=== PATIENT | female | born 1930 | race Caucasian/White ===

== ENCOUNTER → 2016-10-21 | Outpatient (CLI) | payer OTHER ==
[~2016-10-21] MED LIST: ACET-1256 PO; ATEN-173; ATEN25TA PO; CALC-388 PO; CHOL1000 PO; CHOL2000 PO; CLC100; FRRS300; IBAN150T PO; LOVA40TA4 PO; MESA1TAB4 PO; MESALAMINE; OMEG10007 PO; PRMVC; RXC5 PO; ULT50X PO
--- NOTE | 2016-10-21 16:24 | MAMMOGRAPHY REPORT ---
BILATERAL DIGITAL SCREENING MAMMOGRAM WITH CAD: 10/21/2016 CLINICAL HISTORY: Routine screening. Patient has no complaints. TECHNIQUE: Bilateral CC and MLO views were obtained. Current study was also evaluated with a Comput er Aided Detection (CAD) system. COMPARISON: Comparison is made to exams dated: 10/09/2015 mammogram, 12/26/2011 mammogram, 10/06/2014 mammogram, 12/19/2010 mammogram, 12/18/2009 mammogram - [facility], and 12/15/2008. BREAST COMPOSITION: The tissue of both breasts is almost entirely fatty. FINDINGS: There are minimal vascular calcifications in both breasts. No suspicious mass, architec tural distortion or cluster of microcalcifications is seen. IMPRESSION: ACR BI-RADS CATEGORY 2: BENIGN There is no mammographic evidence of malignancy. A 1 year screening mammogram is recommended. The p atient will receive written notification of the results. Approximately 10% of breast cancers are not detected with mammography. A negative mammographic repor t should not delay biopsy if a clinically suggestive mass is present. Hanna So M.D. ay/:10/21/2016 13:26:43 Ambulance Officer: Lakisha MCDONALD(Erick)(M), [facility] letter sent: Normal 1/2 BI-RADS Code: ACR BI-RADS Category 2: Benign
== END | disposition home or self-care (01) ==
LOC: C.MAMM 09:42
PROVIDERS: ATTEND Family Medicine
DX: Z12.31 Encounter for screening mammogram for malignant neoplasm of breast (principal)

== ENCOUNTER 2017-04-17 15:06 | Observation (INO) | payer OTHER ==
[~2017-04-17] VITALS: Ht 149.9 cm; Wt 87.0 kg
[~2017-04-17 15:06] MED LIST changes: -ACET-1256 PO; -ATEN25TA PO; -CALC-388 PO; -CHOL1000 PO; -CHOL2000 PO; -IBAN150T PO; -LOVA40TA4 PO; -MESA1TAB4 PO; -OMEG10007 PO; -RXC5 PO; -ULT50X PO
[2017-04-17] MEDS ORDERED: ACET-1256 PO (15:50)
[2017-04-17] MEDS ORDERED: MESA800T6 PO (15:50)
[2017-04-17] MEDS ORDERED: IBAN150T PO (15:50)
[2017-04-17] MEDS ORDERED: ATEN25TA PO (15:50)
[2017-04-17] MEDS ORDERED: CHOL1000 PO (15:50)
[2017-04-17] MEDS ORDERED: LOVA40TA4 PO (15:50)
[2017-04-17] MEDS ORDERED: OMEG10007 PO (15:50)
--- NOTE | 2017-04-17 16:20 | EMERGENCY ROOM VISIT NOTE ---
History Report prepared by Jennifer: Soham York Under the Supervision of: Dr. Luis Roca M.D. First contact with patient: 15:39 Chief Complaint: BACK PAIN Stated Complaint: back pain History of Present Illness The patient is an 86 year old female who presents to the Emergency Room with complaints of worsening middle back pain beginning this morning. She currently rates her pain a 2/10. The patient states for the last three days, she has been raking leaves in the yard. She reports she was bending and stretching in all sorts of ways. The patient notes she woke up this morning with her discomfort. She states she thought it was going to go away, but it did not. The patient reports she has a history of a compression fracture in her right leg. She denies recent infection, changes to medication, and trauma to her back. The patient notes she takes blood pressure medication, but she denies any other chronic medication. She states she has a history of a cholecystectomy and a hysterectomy. Pt denies LOC, headache, fevers, chills, diaphoresis, visual changes, neck pain, chest pain, breathing difficulties, nausea, vomiting, abdominal pain, melena, hematochezia, urinary symptoms, numbness, weakness, lymphadenopathy, rash, or other complaints. The nursing staff states the patient's pain was there this morning, and she has been doing a lot of yard work lately. They report the patient placed in a stair chair by EMS and then transferred to the [facility]. Nursing staff notes the patient 's pain went from a 2/10 to a 10/10 and blood pressure and O2Sat dropped to the low 80s. They state the patient was given 50 Fentanyl, 4 Zofran, and fluid. Nursing staff reports the patient's pain dropped from a 10/10 back down to a 2/ 10, and her stats returned to normal. Source of History: patient Onset: this morning Position: back Symptom Intensity: 2/10 Timing: worsening Modifying Factors (Relieving): other (Fentanyl and Zofran) Review of Systems See HPI for pertinent positives and negatives. A total of ten systems were reviewed and were otherwise negative. Past Medical & Surgical Medical Problems: (1) Aortic insufficiency (2) History of ulcerative colitis (3) Hypertension (4) Osteoporosis Surgical Problems: (1) S/P cholecystectomy (2) S/P hysterectomy Family History Patient reports no known family medical history. Social History Smoking Status: Never Smoker Marital Status: Occupation Status: retired Current/Historical Medications Scheduled Atenolol (Tenormin), 25 MG PO DAILY Calcium Carbonate-Vitamin D (Calcium + D3 600-200 mg-Unit), 1 TAB PO BID Cholecalciferol (Vitamin D3), 1 CAP PO DAILY Fish Oil (Ryan-3), 1 CAP PO DAILY Ibandronate Sodium (Boniva), 150 MG PO MONTHLY Lovastatin (Mevacor), 40 MG PO DAILY Mesalamine (Asacol Hd), 2 TAB PO BID Scheduled PRN Acetaminophen (Tylenol), 1-2 TAB PO Q8 PRN for Mild Pain Allergies Coded Allergies: No Known Allergies (Verified , 08/22/06) Physical Exam Vital Signs Date Time Temp Pulse Resp B/P (MAP) Pulse Ox O2 Delivery O2 Flow Rate FiO2 04/17/17 18:22 77 20 133/66 94 Nasal Cannula 2.0 04/17/17 18:10 76 04/17/17 16:24 70 20 114/61 92 Nasal Cannula 2.0 04/17/17 15:23 95 Nasal Cannula 2.0 04/17/17 15:15 36.7 65 20 123/53 91 Room Air Physical Exam GENERAL: Awake, alert, uncomfortable-appearing, in no distress HENT: Normocephalic, atraumatic. Oropharynx unremarkable. EYES: Normal conjunctiva. Sclera non-icteric. NECK: Supple. No nuchal rigidity. FROM. No JVD. RESPIRATORY: Clear to auscultation. CARDIAC: Regular rate, normal rhythm. Extremities warm and well perfused. Pulses equal. ABDOMEN: Soft, non-distended. No tenderness to palpation. No rebound or guarding. No masses. RECTAL: Deferred. MUSCULOSKELETAL: Chest examination reveals no tenderness. The back is symmetrical on inspection without obvious abnormality. There is bilateral CVA tenderness to palpation. No joint edema. LOWER EXTREMITIES: Calves are equal size bilaterally and non-tender. No edema. No discoloration. NEURO: Normal sensorium. No sensory or motor deficits noted. No saddle anesthesia. SKIN: No rash or jaundice noted. Medical Decision & Procedures ER Provider Diagnostic Interpretation: LUMBAR SPINE CT CT DOSE: 1745.81 mGy.cm HISTORY: Back pain TECHNIQUE: Multiaxial CT images of the lumbar spine were performed and reformatted in the sagittal and coronal plane without the use of contrast. A dose lowering technique was utilized adhering to the principles of ALARA. COMPARISON: None. FINDINGS: No fractures within the lumbar spine. Moderate to space narrowing at L2-L3. Mild disc space narrowing at L4-L5 and L1-L2. Severe disc space narrowing at L5-S1. There is bilateral L5 spondylolysis with associated 9 mm of anterolisthesis. Results in moderate neural foraminal narrowing at L5-S1. Mild dextroscoliosis. IMPRESSION: 1. No fractures within the lumbar spine. 2. Degenerative changes as described above. 3. 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 Electronically signed by: Yong Ardon M.D. 04/17/2017 4:53 PM Dictated Date/Time: 04/17/2017 4:49 PM Laboratory Results 04/17/17 16:54 Red Blood Count 3.32, Mean Corpuscular Volume 100.3, Mean Corpuscular Hemoglobin 34.6, Mean Corpuscular Hemoglobin Concent 34.5, Mean Platelet Volume 9.2, Neutrophils (%) (Auto) 79.2, Lymphocytes (%) (Auto) 14.5, Monocytes (%) ( Auto) 6.3, Eosinophils (%) (Auto) 0.0, Basophils (%) (Auto) 0.0, Neutrophils # ( Auto) 5.67, Lymphocytes # (Auto) 1.04, Monocytes # (Auto) 0.45, Eosinophils # ( Auto) 0.00, Basophils # (Auto) 0.00 04/17/17 16:54 Test 04/17/17 16:54 White Blood Count 7.16 K/uL (4.8-10.8) Red Blood Count 3.32 M/uL (4.2-5.4) Hemoglobin 11.5 g/dL (12.0-16.0) Hematocrit 33.3 % (37-47) Mean Corpuscular Volume 100.3 fL (80-100) Mean Corpuscular Hemoglobin 34.6 pg (25-34) Mean Corpuscular Hemoglobin Concent 34.5 g/dl (32-36) Platelet Count 147 K/uL (130-400) Mean Platelet Volume 9.2 fL (7.4-10.4) Neutrophils (%) (Auto) 79.2 % Lymphocytes (%) (Auto) 14.5 % Monocytes (%) (Auto) 6.3 % Eosinophils (%) (Auto) 0.0 % Basophils (%) (Auto) 0.0 % Neutrophils # (Auto) 5.67 K/uL (1.4-6.5) Lymphocytes # (Auto) 1.04 K/uL (1.2-3.4) Monocytes # (Auto) 0.45 K/uL (0.11-0.59) Eosinophils # (Auto) 0.00 K/uL (0-0.5) Basophils # (Auto) 0.00 K/uL (0-0.2) RDW Standard Deviation 49.7 fL (36.4-46.3) RDW Coefficient of Variation 13.8 % (11.5-14.5) Immature Granulocyte % (Auto) 0.0 % Immature Granulocyte # (Auto) 0.00 K/uL (0.00-0.02) Erythrocyte Sedimentation Rate 18 mm/hr (0-21) Prothrombin Time 10.5 SECONDS (9.0-12.0) Prothromb Time International Ratio 1.0 (0.9-1.1) Activated Partial Thromboplast Time 28.3 SECONDS (21.0-31.0) Partial Thromboplastin Ratio 1.1 Anion Gap 5.0 mmol/L (3-11) Est Creatinine Clear Calc Drug Dose 48.7 ml/min Estimated GFR () 76.8 Estimated GFR (Non- 66.2 BUN/Creatinine Ratio 25.9 (10-20) Calcium Level 9.2 mg/dl (8.5-10.1) C-Reactive Protein 3.34 mg/dl (0-0.29) Laboratory results reviewed by me Medications Administered Medications (Trade) Dose Ordered Sig/Fabrice Route Start Time Stop Time Status Last Admin Dose Admin Morphine Sulfate (MoRPHine SULFATE INJ) 2 mg STK-MED ONCE .ROUTE 04/17/17 17:16 04/17/17 17:17 DC 04/17/17 17:18 2 MG ED Course 1543: The patient was evaluated in room B06. A complete history and physical exam was performed. 1708: I reevaluated the patient. I showed and discussed her CT results with her. 1716: Ordered Morphine Sulfate 2mg IV 1738: I reevaluated the patient. She received her shot. The patient is now able to sit up. She is going to try an ambulatory trial. 1823: Upon reexamination, the patient failed her ambulatory trial. I discussed the test results and treatment plan with her. The patient will be evaluated for further management. 1831: I discussed the patient's case with Yanni Headley. The patient will be evaluated for further management and care. Medical Decision Triage Nursing notes reviewed. The patient's presentation and history were concerning for back pain. Etiologies such as lumbago, sciatica, cauda equina, epidural abscess, osteomyelitis, fracture, aortic disease, metastatic disease, infection, renal colic, gastrointestinal, as well as others were entertained. The patient was evaluated. She was uncomfortable with movement but relatively comfortable laying still. She had no neurologic findings on examination. She denied any significant trauma. She felt much better after receiving the fentanyl although did have a brief episode of hypotension and hypoxia which easily was corrected. Blood work was obtained. Urinalysis ordered. The patient declined additional analgesia. The patient had a CT scan as above. She has significant degenerative changes. The patient then requested analgesia after CT. She was given morphine. She felt better with resting. The patient was ambulated and did not do well at all. She had increasing pain. She is very uncomfortable. Given these issues she will need further evaluation and management in the hospital. The patient and family were in agreement. Consultation was made to the hospitalist service. The patient was evaluated for further management. Medication Reconcilliation Current Medication List: was personally reviewed by me Blood Pressure Screening Patient's blood pressure: Normal blood pressure Blood pressure disposition: Did not require urgent referral Consults Time Called: 1823 Consulting Physician: Yanni Headley Returned Call: 1831 I discussed the patient's case with Yanni Headley. The patient will be evaluated for further management and care. 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 I confirm that the note above accurately reflects all work, treatment, procedures, and medical decision making performed by me. Departure Information Dispostion Being Evaluated By Hospitalist Referrals Raquel Arriola M.D. (MEDICAL) (PCP) Patient Instructions My [facility] Problem Qualifiers
--- NOTE | 2017-04-17 16:54 | DIAGNOSTIC IMAGING REPORT ---
LUMBAR SPINE CT CT DOSE: 1745.81 mGy.cm HISTORY: Back pain TECHNIQUE: Multiaxial CT images of the lumbar spine were performed and reformatted in the sagittal and coronal plane without the use of contrast. A dose lowering technique was utilized adhering to the principles of ALARA. COMPARISON: None. FINDINGS: No fractures within the lumbar spine. Moderate to space narrowing at L2-L3. Mild disc space narrowing at L4-L5 and L1-L2. Severe disc space narrowing at L5-S1. There is bilateral L5 spondylolysis with associated 9 mm of anterolisthesis. Results in moderate neural foraminal narrowing at L5-S1. Mild dextroscoliosis. IMPRESSION: 1. No fractures within the lumbar spine. 2. Degenerative changes as described above. 3. 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 Electronically signed by: Yong Ardon M.D. 04/17/2017 4:53 PM Dictated Date/Time: 04/17/2017 4:49 PM
[2017-04-17] MEDS ORDERED: MoRPHine SULFATE 4 MG/ML 1 ML CARP\\VIAL IV STA (17:03)
[2017-04-17 17:11] LABS: COMPLETE YES; HEMATOCRIT 33.3 % (37-47); LYMPH % 14.5 %; LYMPH ABS # 1.04 K/uL (1.2-3.4); MEAN CELL VOLUME 100.3 fL (80-100); MEAN CORPUSCULAR HEMOGLOBIN 34.6 pg (25-34); MEAN CORPUSCULAR HGB CONC 34.5 g/dl (32-36); MEAN PLATELET VOLUME 9.2 fL (7.4-10.4); MONO % 6.3 %; NEUT % 79.2 %; PLATELET COUNT 147 K/uL (130-400); RED BLOOD COUNT 3.32 M/uL (4.2-5.4); WHITE BLOOD COUNT 7.16 K/uL (4.8-10.8)
[2017-04-17] MEDS ORDERED: MoRPHine SULFATE 2 MG/ML CARP ONE (17:16)
[2017-04-17 17:22] LABS: PARTIAL THROMBOPLASTIN RATIO 1.1; PROTHROMBIN TIME (PATIENT) 10.5 SECONDS (9.0-12.0)
[2017-04-17 18:07] LABS: BUN/CREATININE RATIO 25.9 (10-20); C-REACTIVE PROTEIN 3.34 mg/dl (0-0.29); CALCIUM 9.2 mg/dl (8.5-10.1); CREATININE 0.81 mg/dl (0.60-1.20); POTASSIUM 3.9 mmol/L (3.5-5.1)
[2017-04-17] MEDS ORDERED: ACETAMINOPHEN 325 MG TAB PO PRN (19:00)
--- NOTE | 2017-04-17 19:06 | History and Physical ---
History & Physical Date & Time of Service: Apr 17, 2017 at 19:05 Chief Complaint: Back Pain Primary Care Physician: Raquel Arriola M.D. (MEDICAL) History of Present Illness Source: patient, clinic records, hospital records This is an 86yo female with a PMH of HTN, osteoporosis and other medical problems listed below who presents with worsening back pain over the past few days. For the previous 3 days, patient has been raking her yard with some twisting and bending down. States that although she is able to ambulate around her home without a problem, this is more exertional activity than her usual daily living. She started to experience a dull middle-lower back pain that worsened as the days progressed. This morning, patient woke up feeling sore all over and fatigued. When she got out of bed and moved about her home, her back pain became sharper and more severe. Pain does not radiate down legs and is not associated with any numbness or tingling of lower extremities. No saddle anesthesia, bowel or bladder incontinence. States that she has felt back pain similar to this earlier in her life during periods of increased exertion. Has history of a compression fracture in her R leg. Lives in a mobile home with her son with a few steps to climb at the entrance. Per chart review and discussion with nursing staff, patient was given 50 of Fentanyl for pain control by EMS en route to the hospital. Her blood pressure and O2 saturation subsequently dropped into the 80s. Patient was given IVF and vitals returned to normal range. In the ER, patient was trialed on 2mg of morphine for pain control but O2 saturations decreased to mid 80s. Patient is now on 3L NC O2 and saturation is 90%. Denies any fever, chills, headache, CP, dyspnea, SOB, abd pain, nausea, vomiting , dysuria, diarrhea, constipation, LE numbness/tingling or swelling. Denies any focal neurological deficits. Past Medical/Surgical History Medical Problems: (1) Aortic insufficiency Status: Chronic (2) History of ulcerative colitis Status: Chronic (3) Hypertension Status: Chronic (4) Osteoporosis Status: Chronic Surgical Problems: (1) S/P cholecystectomy Status: Resolved (2) S/P hysterectomy Status: Resolved Family History Family history was reviewed; no changes noted. Social History Smoking Status: Former Smoker (Quit in 1974) Alcohol Use: none Marital Status: Housing status: lives with family Occupational Status: retired Immunizations History of Influenza Vaccine: Unknown Influenza Vaccine Date: May 25, 2006 History of Tetanus Vaccine?: Unknown History of Pneumococcal: Unknown Pneumococcal Date: Jan 22, 2006 History of Hepatitis B Vaccine: Unknown Multi-Drug Resistant Organisms History of MDRO: No Allergies Coded Allergies: No Known Allergies (Verified , 08/22/06) Home Medications Scheduled Atenolol (Tenormin), 25 MG PO DAILY Calcium Carbonate-Vitamin D (Calcium + D3 600-200 mg-Unit), 1 TAB PO BID Cholecalciferol (Vitamin D3), 1 CAP PO DAILY Fish Oil ([place]-3), 1 CAP PO DAILY Ibandronate Sodium (Boniva), 150 MG PO MONTHLY Lovastatin (Mevacor), 40 MG PO DAILY Mesalamine (Asacol Hd), 2 TAB PO BID Scheduled PRN Acetaminophen (Tylenol), 1-2 TAB PO Q8 PRN for Mild Pain Review of Systems Constitutional- no fever; no weight loss Eyes- no acute visual changes ENT- no sinus drainage; no pharyngitis Pulmonary- no cough, no wheezing, no shortness of breath Cardiac- See HPI. no palpitations, no orthopnea, no dependent edema GI- See HPI - no dysuria, no hematuria Musculoskeletal- See HPI Derm- no rashes, no new skin lesions, no changing skin lesions Hematologic- no unusual bruising, no unusual bleeding Lymphatics- no adenopathy Endocrine- no polyuria or polydipsia; no heat or cold intolerance Neuro- See HPI Psych- no anxiety, no depression Physical Exam Vital Signs Date Time Temp Pulse Resp B/P (MAP) Pulse Ox O2 Delivery O2 Flow Rate FiO2 04/17/17 18:22 77 20 133/66 94 Nasal Cannula 2.0 04/17/17 18:10 76 04/17/17 16:24 70 20 114/61 92 Nasal Cannula 2.0 04/17/17 15:23 95 Nasal Cannula 2.0 04/17/17 15:15 36.7 65 20 123/53 91 Room Air General Appearance: + mild distress (Resting comfortably during interview but grimaces in pain with movement.) Head: normocephalic, atraumatic Eyes: normal inspection, sclerae normal ENT: hearing grossly normal Neck: supple, no adenopathy, no JVD, trachea midline Respiratory/Chest: chest non-tender, lungs clear, normal breath sounds, no respiratory distress Cardiovascular: regular rate, rhythm, normal peripheral pulses Abdomen/GI: normal bowel sounds, non tender, soft, no organomegaly Back: normal inspection, + pertinent finding (Tenderness to palpation of lumbar spine and paraspinal muscles. ROM decreased 2/2 pain. ) Extremities/Musculoskelatal: normal inspection, no calf tenderness, no pedal edema Neurologic/Psych: no motor/sensory deficits, alert, normal mood/affect, oriented x 3 Skin: normal color, warm/dry, no rash Diagnostics Laboratory Results Results Past 24 Hours Test 04/17/17 16:54 Range/Units White Blood Count 7.16 4.8-10.8 K/uL Red Blood Count 3.32 4.2-5.4 M/uL Hemoglobin 11.5 12.0-16.0 g/dL Hematocrit 33.3 37-47 % Mean Corpuscular Volume 100.3 80-100 fL Mean Corpuscular Hemoglobin 34.6 25-34 pg Mean Corpuscular Hemoglobin Concent 34.5 32-36 g/dl Platelet Count 147 130-400 K/uL Mean Platelet Volume 9.2 7.4-10.4 fL Neutrophils (%) (Auto) 79.2 % Lymphocytes (%) (Auto) 14.5 % Monocytes (%) (Auto) 6.3 % Eosinophils (%) (Auto) 0.0 % Basophils (%) (Auto) 0.0 % Neutrophils # (Auto) 5.67 1.4-6.5 K/uL Lymphocytes # (Auto) 1.04 1.2-3.4 K/uL Monocytes # (Auto) 0.45 0.11-0.59 K/uL Eosinophils # (Auto) 0.00 0-0.5 K/uL Basophils # (Auto) 0.00 0-0.2 K/uL RDW Standard Deviation 49.7 36.4-46.3 fL RDW Coefficient of Variation 13.8 11.5-14.5 % Immature Granulocyte % (Auto) 0.0 % Immature Granulocyte # (Auto) 0.00 0.00-0.02 K/uL Erythrocyte Sedimentation Rate 18 0-21 mm/hr Prothrombin Time 10.5 9.0-12.0 SECONDS Prothromb Time International Ratio 1.0 0.9-1.1 Activated Partial Thromboplast Time 28.3 21.0-31.0 SECONDS Partial Thromboplastin Ratio 1.1 Sodium Level 139 136-145 mmol/L Potassium Level 3.9 3.5-5.1 mmol/L Chloride Level 106 98-107 mmol/L Carbon Dioxide Level 27 21-32 mmol/L Anion Gap 5.0 3-11 mmol/L Blood Urea Nitrogen 21 7-18 mg/dl Creatinine 0.81 0.60-1.20 mg/dl Est Creatinine Clear Calc Drug Dose 48.7 ml/min Estimated GFR () 76.8 Estimated GFR (Non- 66.2 BUN/Creatinine Ratio 25.9 10-20 Random Glucose 106 70-99 mg/dl Calcium Level 9.2 8.5-10.1 mg/dl C-Reactive Protein 3.34 0-0.29 mg/dl Diagnostic Radiology CT Lumbar spine: IMPRESSION: 1. No fractures within the lumbar spine. 2. Degenerative changes as described above. 3. 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 Impression Assessment and Plan This is an 86yo female with a PMH of HTN, osteoporosis and other medical problems listed below who presents with worsening back pain over the past few days. 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 appreciated -May also have a muscular component 2/2 bending and twisting while raking -Pain control: scheduled tylenol, heating pad, tramadol and oxycodone PRN -Avoid opioids due decreased respiratory drive already observed in response to fentanyl, morphine -Incentive spirometry, NC O2 per protocol -PT/OT evals ordered. Ambulate on floor with assistance as tolerated -Fall precautions HTN: -Normotensive -Continue home dose atenolol with hold precautions History of ulcerative colitis: -Per chart review, patient in remission -Denies any symptoms currently -Continue home dose Asacol Osteoporosis: -Fall precautions -Conditioning with PT/OT -Continue ibandronate, Vit D, calcium DVT Ppx: Lovenox Code status: FULL PCP: [place] Dispo: health services information specialist to help with discharge due to patient age and potential need for rehab Level of Care Med/Surg Resuscitation Status FULL RESUSCITATION VTE Prophylaxis VTE Risk Assessment Done? Y/N: Yes Risk Level: Moderate Given or contraindicated: Enoxaparin (Lovenox)SQ Note ATTENDING ADDENDUM Record reviewed. Patient interviewed and examined in ED. Care coordinated with Vira Gruber PA-C. Please refer to her documentation for patient's history. Briefly, 86 YO female with history of hypertension, inflammatory bowel disease, and other problems. Developed severe low back pain after doing yard work today; no falls or other trauma. EXAM: General- elderly female, very uncomfortable due to severe back pain VS- as noted Lungs- clear Heart- RRR Abdomen- + BS, soft, nontender Back- lumbar tenderness; low back pain with bilat SLR Extremities- trace pretibial edema Neuro- a bit sedated after receiving analgesics in ED DATA: Lab studies as noted. LUMBAR SPINE CT IMPRESSION: 1. No fractures within the lumbar spine. 2. Degenerative changes as described above. 3. 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 Electronically signed by: Yong Ardon M.D. 04/17/2017 4:53 PM Dictated Date/Time: 04/17/2017 4:49 PM ASSESSMENT AND PLAN: Severe low back pain after doing yardwork. CT findings as noted above. Analgesics. PT / OT. DVT prophylaxis- SQ enoxaparin. Discharge disposition to be determined- may need skilled care. Please refer to DESIRAE Gruber's documentation for discussion of other issues. Luis Remy MD .
[2017-04-17] MEDS ORDERED: OXYCODONE/ACETAMINOPHEN 5-325 TAB PO PRN (19:30)
[2017-04-17] MEDS ORDERED: CHOL2000 PO (19:41)
[2017-04-17 20:23] VITALS: BP 96/58; PULSE 88; O2SAT 92; Ht 149.9 cm; Wt 87.0 kg
[2017-04-17] MEDS ORDERED: IV FLUIDS COMPLETED PRN (20:30)
[2017-04-17] MEDS: ACETAMINOPHEN 500 MG TAB PO SCH (20:32)
[2017-04-17] MEDS ORDERED: CALC-388 PO (20:37)
[2017-04-17] MEDS ORDERED: ENOXAPARIN 30 MG/0.3 ML SYR SQ SCH (21:00)
[2017-04-17] MEDS: CALCIUM 600MG + VIT D 400 IU TAB PO SCH (21:25)
[2017-04-17 21:33] VITALS: O2SAT 92
[2017-04-17] MEDS ORDERED: INFLUENZA ADMINISTRATION CHARGE ONE (23:30)
[2017-04-17] MEDS ORDERED: INFLUENZA VACCINE HIGH DOSE 65+ 0.5 ML SYR IM. ONE (23:30)
[2017-04-17 23:35] VITALS: BP 113/70; PULSE 82; TEMP 36.4; O2SAT 94
[2017-04-18] MEDS: OXYCODONE HCL IR 5 MG TAB (IMMEDIATE RELEASE) PO PRN ×2 (03:07→12:49)
[2017-04-18 05:58] LABS: HEMATOCRIT 31.1 % (37-47); MEAN CELL VOLUME 100.6 fL (80-100); MEAN CORPUSCULAR HEMOGLOBIN 35.3 pg (25-34); MEAN PLATELET VOLUME 9.5 fL (7.4-10.4); PLATELET COUNT 150 K/uL (130-400); RED BLOOD COUNT 3.09 M/uL (4.2-5.4); WHITE BLOOD COUNT 12.11 K/uL (4.8-10.8)
[2017-04-18 06:31] LABS: BUN/CREATININE RATIO 30.1 (10-20); CALCIUM 8.8 mg/dl (8.5-10.1); CREATININE 0.83 mg/dl (0.60-1.20); POTASSIUM 3.8 mmol/L (3.5-5.1)
[2017-04-18 07:43] VITALS: BP 113/68; PULSE 87; TEMP 37.2; O2SAT 92
[2017-04-18] MEDS: CALCIUM 600MG + VIT D 400 IU TAB PO SCH ×2 (08:14→20:25)
[2017-04-18] MEDS: LOVASTATIN 20 MG TAB PO SCH (08:15)
[2017-04-18] MEDS: CHOLECALCIFEROL 1000 INTER.UNIT TAB PO SCH (08:16)
[2017-04-18] MEDS: ACETAMINOPHEN 500 MG TAB PO SCH ×3 (08:17→20:26)
[2017-04-18 11:16] LABS: URINE APPEARANCE CLOUDY (CLEAR); URINE COLOR DK YELLOW; URINE EPITHELIAL CELL AUTO 20-30 /lpf (0-5); URINE NITRITE NEG (NEG); URINE SPECIFIC GRAVITY 1.026 (1.000-1.030); UROBILINOGEN NEG (NEG); ZZUR CULT IF INDIC CLEAN CATCH YES
[2017-04-18 11:23] LABS: MANUAL MICROSCOPIC REQUIRED? NO; REVIEW REQ? YES
[2017-04-18 11:24] LABS: URINE BILIRUBIN NEG (NEG)
[2017-04-18 13:00] VITALS: O2SAT 88; O2SAT 89
[2017-04-18 13:05] VITALS: O2SAT 95
[2017-04-18 14:56] VITALS: BP 109/69; PULSE 65; TEMP 36.7; O2SAT 93
[2017-04-18] MEDS: ENOXAPARIN 30 MG/0.3 ML SYR SQ SCH (20:26)
[2017-04-19] VITALS: O2SAT 90
[2017-04-19 00:15] VITALS: BP 120/74; PULSE 85; TEMP 36.9; O2SAT 90
[2017-04-19 07:48] VITALS: BP 119/73; PULSE 79; TEMP 37.1; O2SAT 93
--- NOTE | 2017-04-19 08:03 | Progress Note ---
Internal Med Progress Note Date of Service: Apr 19, 2017. Provider Documentation: This is a bill for 04/18 17 SUBJECTIVE: The patient was seen and examined OOB in a chair Complains of some back pain ,no radiation and no neuro symptoms OBJECTIVE: Vital Signs-as noted below Exam: General-No distress at rest Eyes-normal ENT-normal Neck-supple Lungs-Clear to ausucltate bilaterally Heart-Regular,no murmur appreciated Abdomen-Benign Extremities-No edema Neuro-AAOx3 Lab data as noted below. ASSESSMENT & PLAN: This is an 86yo female with a PMH of HTN, osteoporosis and other medical problems listed below who presents with worsening back pain over the past few days. 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 Ambulate on floor with assistance as tolerated -Fall precautions -Pain seems to be reasonably controlled -Continue PT/OT HTN: -Normotensive -Continue home dose atenolol with hold precautions -Blood pressure remains stable Ulcerative colitis: -Per chart review, patient in remission -Denies any symptoms currently -Continue home dose Asacol Osteoporosis: -Fall precautions -Conditioning with PT/OT -Continue ibandronate, Vit D, calcium DVT Ppx: Lovenox Code status: FULL PCP: Flako Dispo: oil [employer] services field supervisor to help with discharge due to patient age and potential need for rehab Vital Signs: Date Time Temp Pulse Resp B/P (MAP) Pulse Ox O2 Delivery O2 Flow Rate FiO2 04/19/17 07:48 37.1 79 18 119/73 (88) 93 2.0 04/19/17 00:15 36.9 85 20 120/74 (89) 90 Room Air 04/19/17 00:00 90 Room Air 04/18/17 16:00 Room Air 04/18/17 14:56 36.7 65 20 109/69 (82) 93 04/18/17 13:05 95 Nasal Cannula 2.0 04/18/17 13:00 88 Room Air 04/18/17 08:00 Room Air Lab Results: Results Past 24 Hours Test 04/18/17 10:56 Range/Units Urine Color DK YELLOW Urine Appearance CLOUDY CLEAR Urine pH 5.0 4.5-7.5 Urine Specific [place] 1.026 1.000-1.030 Urine Protein 1+ NEG Urine Glucose (UA) NEG NEG Urine Ketones TRACE NEG Urine Occult Blood NEG NEG Urine Nitrite NEG NEG Urine Bilirubin NEG NEG Urine Urobilinogen NEG NEG Urine Leukocyte Esterase LARGE NEG Urine WBC (Auto) >30 0-5 /hpf Urine RBC (Auto) 0-4 0-4 /hpf Urine Hyaline Casts (Auto) 1-5 0-5 /lpf Urine Epithelial Cells (Auto) 20-30 0-5 /lpf Urine Bacteria (Auto) 4+ NEG Urine Yeast (Auto) NONE PRSENT Microbiology Results 04/18/17 Urine Culture - Preliminary, Resulted Gram Negative Bacilli
[2017-04-19] MEDS: OXYCODONE HCL IR 5 MG TAB (IMMEDIATE RELEASE) PO PRN ×2 (08:17→20:50)
[2017-04-19] MEDS: ACETAMINOPHEN 500 MG TAB PO SCH ×3 (08:18→20:45)
[2017-04-19] MEDS: CHOLECALCIFEROL 1000 INTER.UNIT TAB PO SCH (08:18)
[2017-04-19] MEDS: CALCIUM 600MG + VIT D 400 IU TAB PO SCH ×2 (08:19→20:52)
[2017-04-19] MEDS: LOVASTATIN 20 MG TAB PO SCH (08:19)
[2017-04-19] MEDS: TRAMADOL HCL 50 MG TAB PO PRN (12:59)
--- NOTE | 2017-04-19 14:51 | Progress Note ---
Internal Med Progress Note Date of Service: Apr 19, 2017. Provider Documentation: SUBJECTIVE: The patient was seen and examined OOB in a chair Complains of some back pain ,no radiation and no neuro symptoms Remains reasonably stable Getting Physical Therapy OBJECTIVE: Vital Signs-as noted below Exam: General-No distress at rest Eyes-normal ENT-normal Neck-supple Lungs-Clear to ausucltate bilaterally Heart-Regular,no murmur appreciated Abdomen-Benign Extremities-No edema Neuro-AAOx3 Lab data as noted below. ASSESSMENT & PLAN: This is an 86yo female with a PMH of HTN, osteoporosis and other medical problems listed below who presents with worsening back pain over the past few days. 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 appreciated -Pain control: scheduled Tylenol, heating pad, tramadol and oxycodone PRN -Avoid opioids due decreased respiratory drive already observed in response to fentanyl, morphine -Fall precautions -Pain seems to be reasonably controlled -Continue PT/OT-doing well -Likely discharge tomorrow HTN: -Normotensive -Continue home dose atenolol with hold precautions -Blood pressure remains stable Ulcerative colitis: -Per chart review, patient in remission -Denies any symptoms currently -Continue home dose Asacol Osteoporosis: -Fall precautions -Conditioning with PT/OT -Continue ibandronate, Vit D, calcium DVT Ppx: Lovenox Code status: FULL PCP: Flako Dispo: services coordinator to help with discharge due to patient age and potential need for rehab Likely discharge on Friday Vital Signs: Date Time Temp Pulse Resp B/P (MAP) Pulse Ox O2 Delivery O2 Flow Rate FiO2 04/19/17 08:00 Room Air 04/19/17 07:48 37.1 79 18 119/73 (88) 93 2.0 04/19/17 00:15 36.9 85 20 120/74 (89) 90 Room Air 04/19/17 00:00 90 Room Air 04/18/17 16:00 Room Air 04/18/17 14:56 36.7 65 20 109/69 (82) 93
[2017-04-19 16:00] VITALS: BP 119/73; PULSE 66; TEMP 36.9; O2SAT 90
[2017-04-19 16:01] VITALS: BP 119/73; PULSE 79; TEMP 37.1; O2SAT 93
[2017-04-19] MEDS ORDERED: NURSING VERBAL MED ORDER ONE (16:30)
[2017-04-19] MEDS: ASACOL HD 800 MG PO SCH (20:45)
[2017-04-19] MEDS: ENOXAPARIN 30 MG/0.3 ML SYR SQ SCH (20:46)
[2017-04-20 00:16] VITALS: O2SAT 90
[2017-04-20 00:41] VITALS: BP 130/77; PULSE 74; TEMP 37; O2SAT 94
[2017-04-20] MEDS: OXYCODONE HCL IR 5 MG TAB (IMMEDIATE RELEASE) PO PRN ×2 (05:27→19:39)
[2017-04-20 07:30] LABS: CREATININE 0.53 mg/dl (0.60-1.20)
[2017-04-20 07:51] LABS: HEMATOCRIT 31.6 % (37-47); MEAN CELL VOLUME 101.6 fL (80-100); MEAN CORPUSCULAR HGB CONC 35.4 g/dl (32-36); MEAN PLATELET VOLUME 9.9 fL (7.4-10.4); PLATELET COUNT 162 K/uL (130-400); RED BLOOD COUNT 3.11 M/uL (4.2-5.4); WHITE BLOOD COUNT 5.96 K/uL (4.8-10.8)
[2017-04-20 08:03] VITALS: BP 120/76; PULSE 73; TEMP 37; O2SAT 96
[2017-04-20] MEDS: CALCIUM 600MG + VIT D 400 IU TAB PO SCH ×2 (08:22→20:27)
[2017-04-20] MEDS: CHOLECALCIFEROL 1000 INTER.UNIT TAB PO SCH (08:22)
[2017-04-20] MEDS: ASACOL HD 800 MG PO SCH ×2 (08:22→20:33)
[2017-04-20] MEDS: LOVASTATIN 20 MG TAB PO SCH (08:23)
[2017-04-20] MEDS: ACETAMINOPHEN 500 MG TAB PO SCH ×3 (08:24→20:32)
[2017-04-20] MEDS: TRAMADOL HCL 50 MG TAB PO PRN (10:27)
[2017-04-20 15:28] VITALS: BP 120/72; PULSE 66; TEMP 36.6; O2SAT 93
--- NOTE | 2017-04-20 17:45 | Progress Note ---
Internal Med Progress Note Date of Service: Apr 20, 2017. Provider Documentation: SUBJECTIVE: The patient was seen and examined OOB in a chair Complains of some back pain ,no radiation and no neuro symptoms Pain is reasonably controlled OBJECTIVE: Vital Signs-as noted below Exam: General-No distress at rest Eyes-normal ENT-normal Neck-supple Lungs-Clear to ausucltate bilaterally Heart-Regular,no murmur appreciated Abdomen-Benign Extremities-No edema No tenderness in spine Neuro-AAOx3 No focal neuro deficit Lab data as noted below. ASSESSMENT & PLAN: This is an 86yo female with a PMH of HTN, osteoporosis and other medical problems listed below who presents with worsening back pain over the past few days. 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 appreciated -Pain control: scheduled Tylenol, heating pad, tramadol and oxycodone PRN -Avoid opioids due decreased respiratory drive already observed in response to fentanyl, morphine -Fall precautions -Pain seems to be reasonably controlled -Continue PT/OT-doing well -denies any new symptoms -continue current pain regimen HTN: -Normotensive -Continue home dose atenolol with hold precautions -Blood pressure remains stable Ulcerative colitis: -Per chart review, patient in remission -Continue home dose Asacol -No acute symptoms Osteoporosis: -Fall precautions -Conditioning with PT/OT -Continue ibandronate, Vit D, calcium DVT Ppx: Lovenox Code status: FULL PCP: Flako Dispo: director of radio services to help with discharge due to patient age and potential need for rehab Likely discharge on Friday Vital Signs: Date Time Temp Pulse Resp B/P (MAP) Pulse Ox O2 Delivery O2 Flow Rate FiO2 04/20/17 15:28 36.6 66 18 120/72 (88) 93 Room Air 04/20/17 08:03 37.0 73 18 120/76 (91) 96 Nasal Cannula 2.0 04/20/17 08:00 Room Air 04/20/17 00:41 37.0 74 18 130/77 (94) 94 2.0 04/20/17 00:16 90 Nasal Cannula 2.0 Lab Results: Results Past 24 Hours Test 04/20/17 06:18 Range/Units White Blood Count 5.96 4.8-10.8 K/uL Red Blood Count 3.11 4.2-5.4 M/uL Hemoglobin 11.2 12.0-16.0 g/dL Hematocrit 31.6 37-47 % Mean Corpuscular Volume 101.6 80-100 fL Mean Corpuscular Hemoglobin 36.0 25-34 pg Mean Corpuscular Hemoglobin Concent 35.4 32-36 g/dl RDW Standard Deviation 50.5 36.4-46.3 fL RDW Coefficient of Variation 13.9 11.5-14.5 % Platelet Count 162 130-400 K/uL Mean Platelet Volume 9.9 7.4-10.4 fL Creatinine 0.53 0.60-1.20 mg/dl Est Creatinine Clear Calc Drug Dose 74.4 ml/min Estimated GFR () 100.3 Estimated GFR (Non- 86.6
[2017-04-20] MEDS: ENOXAPARIN 30 MG/0.3 ML SYR SQ SCH (20:28)
[2017-04-20 23:36] VITALS: BP 122/77; PULSE 76; TEMP 36.4; O2SAT 91
[2017-04-21] MEDS: TRAMADOL HCL 50 MG TAB PO PRN ×2 (00:04→12:56)
[2017-04-21 07:28] VITALS: BP 131/79; PULSE 82; TEMP 37.3; O2SAT 91
[2017-04-21] MEDS: LOVASTATIN 20 MG TAB PO SCH (08:05)
[2017-04-21] MEDS: CHOLECALCIFEROL 1000 INTER.UNIT TAB PO SCH (08:06)
[2017-04-21] MEDS: CALCIUM 600MG + VIT D 400 IU TAB PO SCH (08:06)
[2017-04-21] MEDS: ACETAMINOPHEN 500 MG TAB PO SCH ×2 (08:06→14:37)
[2017-04-21] MEDS: ASACOL HD 800 MG PO SCH (08:08)
[2017-04-21] MEDS: OXYCODONE HCL IR 5 MG TAB (IMMEDIATE RELEASE) PO PRN ×2 (08:13→16:39)
--- NOTE | 2017-04-21 15:03 | Progress Note ---
Internal Med Progress Note Date of Service: Apr 21, 2017. Provider Documentation: SUBJECTIVE: The patient was seen and examined OOB in a chair Complains of some back pain ,no radiation and no neuro symptoms Pain is reasonably controlled Ambulating with her son without much difficulty Discharge home today OBJECTIVE: Vital Signs-as noted below Exam: General-No distress at rest Eyes-normal ENT-normal Neck-supple Lungs-Clear to ausucltate bilaterally Heart-Regular,no murmur appreciated Abdomen-Benign Extremities-No edema No tenderness in spine Neuro-AAOx3 No focal neuro deficit Lab data as noted below. ASSESSMENT & PLAN: This is an 86yo female with a PMH of HTN, osteoporosis and other medical problems listed below who presents with worsening back pain over the past few days. 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 appreciated -Pain control: scheduled Tylenol, heating pad, tramadol and oxycodone PRN -Avoid opioids due decreased respiratory drive already observed in response to fentanyl, morphine -Fall precautions -Pain seems to be reasonably controlled -Continue PT/OT-doing well -denies any new symptoms -continue current pain regimen -pain is controlled -Ready to go home today HTN: -Normotensive -Continue home dose atenolol with hold precautions -Blood pressure remains stable Ulcerative colitis: -Per chart review, patient in remission -Continue home dose Asacol -No acute symptoms Osteoporosis: -Fall precautions -Conditioning with PT/OT -Continue ibandronate, Vit D, calcium DVT Ppx: Lovenox Code status: FULL PCP: Flako Dispo: disability services coordinator to help with discharge due to patient age and potential need for rehab Discharge today Vital Signs: Date Time Temp Pulse Resp B/P (MAP) Pulse Ox O2 Delivery O2 Flow Rate FiO2 04/21/17 07:28 37.3 82 18 131/79 (96) 91 Room Air 04/21/17 00:10 Room Air 04/20/17 23:36 36.4 76 18 122/77 (92) 91 Room Air 04/20/17 15:28 36.6 66 18 120/72 (88) 93 Room Air
[2017-04-21] MEDS ORDERED: RXC5 PO (15:05)
[2017-04-21] MEDS ORDERED: ULT50X PO (15:05)
[2017-04-21 15:07] VITALS: BP 119/73; PULSE 67; TEMP 36.8; O2SAT 92
--- NOTE | 2017-04-21 15:08 | Discharge Instructions ---
Discharge Instructions Date of Service Apr 21, 2017. Admission Reason for Admission: Intractable Back Pain Discharge Discharge Diagnosis / Problem: Back pain Discharge Goals Goal(s): Prevent Disease Progression Activity Recommendations Activity Limitations: resume your previous activity (Take precaution to avoid fall) . Instructions / Follow-Up Instructions / Follow-Up Dr Arriola on 04/25/17 at 1:45 PM.OP Physical therapy Current Hospital Diet Patient's current hospital diet: AHA Diet (Heart Healthy) Discharge Diet Recommended Diet: AHA Diet (Heart Healthy) Pending Studies Studies pending at discharge: no Medical Emergencies . Who to Call and When: Medical Emergencies: If at any time you feel your situation is an emergency, please call 911 immediately. . Non-Emergent Contact Non-Emergency issues call your: Primary Care Provider . 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 "Provider Documentation" section prepared by Catarino Chavarria. . VTE Core Measure Inpt VTE Proph given/why not?: Enoxaparin (Lovenox)SQ
[2017-04-21 16:21] VITALS: BP 119/73; PULSE 67; TEMP 36.8; O2SAT 92
--- NOTE | 2017-04-22 14:50 | Discharge Summary ---
Discharge Summary Date of Service Apr 22, 2017. Discharge Summary Admission Date: Apr 17, 2017 at 18:50 Discharge Date: Apr 21, 2017 Principal Diagnosis: Intractable Back Pain Secondary Diagnoses/Problems: Please see H&P and Hospital progress note Medication Reconciliation New Medications: Oxycodone HCl (Oxycodone HCl) 5 Mg Tab 5 MG PO Q6H PRN for severe for 5 Days, #20 TAB Tramadol HCl (Tramadol HCl) 50 Mg Tab 25 MG PO Q6 PRN for Moderate Pain for 10 Days, #20 TAB Continued Medications: Acetaminophen (Tylenol) 500 Mg Tab 1-2 TAB PO Q8 PRN for Mild Pain, TAB Atenolol (Tenormin) 25 Mg Tab 25 MG PO DAILY, TAB Calcium Carbonate-Vitamin D (Calcium + D3 600-200 mg-Unit) 1 Tab Tab 1 TAB PO BID Cholecalciferol (Vitamin D3) 2,000 Unit Cap 1 CAP PO DAILY for 30 Days, #30 CAP 3 Refills Fish Oil (Milan-3) 1 Ea Cap 1 CAP PO DAILY, CAP Ibandronate Sodium (Boniva) 150 Mg Tab 150 MG PO MONTHLY, TAB Lovastatin (Mevacor) 40 Mg Tab 40 MG PO DAILY, TAB Mesalamine (Asacol Hd) 800 Mg Tab 2 TAB PO BID Admission Information HPI (per Admitting provider): This is an 86yo female with a PMH of HTN, osteoporosis and other medical problems listed below who presents with worsening back pain over the past few days. For the previous 3 days, patient has been raking her yard with some twisting and bending down. States that although she is able to ambulate around her home without a problem, this is more exertional activity than her usual daily living. She started to experience a dull middle-lower back pain that worsened as the days progressed. This morning, patient woke up feeling sore all over and fatigued. When she got out of bed and moved about her home, her back pain became sharper and more severe. Pain does not radiate down legs and is not associated with any numbness or tingling of lower extremities. No saddle anesthesia, bowel or bladder incontinence. States that she has felt back pain similar to this earlier in her life during periods of increased exertion. Has history of a compression fracture in her R leg. Lives in a mobile home with her son with a few steps to climb at the entrance. Per chart review and discussion with nursing staff, patient was given 50 of Fentanyl for pain control by EMS en route to the hospital. Her blood pressure and O2 saturation subsequently dropped into the 80s. Patient was given IVF and vitals returned to normal range. In the ER, patient was trialed on 2mg of morphine for pain control but O2 saturations decreased to mid 80s. Patient is now on 3L NC O2 and saturation is 90%. Denies any fever, chills, headache, CP, dyspnea, SOB, abd pain, nausea, vomiting , dysuria, diarrhea, constipation, LE numbness/tingling or swelling. Denies any focal neurological deficits. Past Medical/Surgical History Medical Problems: (1) Aortic insufficiency Status: Chronic (2) History of ulcerative colitis Status: Chronic (3) Hypertension Status: Chronic (4) Osteoporosis Status: Chronic Surgical Problems: (1) S/P cholecystectomy Status: Resolved (2) S/P hysterectomy Status: Resolved Family History Family history was reviewed; no changes noted. Social History Smoking Status: Former Smoker (Quit in 1974) Alcohol Use: none Marital Status: Housing status: lives with family Occupational Status: retired Immunizations History of Influenza Vaccine: Unknown Influenza Vaccine Date: May 25, 2006 History of Tetanus Vaccine?: Unknown History of Pneumococcal: Unknown Pneumococcal Date: Jan 22, 2006 History of Hepatitis B Vaccine: Unknown Multi-Drug Resistant Organisms History of MDRO: No Allergies Coded Allergies: No Known Allergies (Verified , 08/22/06) Home Medications Scheduled Atenolol (Tenormin), 25 MG PO DAILY Calcium Carbonate-Vitamin D (Calcium + D3 600-200 mg-Unit), 1 TAB PO BID Cholecalciferol (Vitamin D3), 1 CAP PO DAILY Fish Oil (Milan-3), 1 CAP PO DAILY Ibandronate Sodium (Boniva), 150 MG PO MONTHLY Lovastatin (Mevacor), 40 MG PO DAILY Mesalamine (Asacol Hd), 2 TAB PO BID Scheduled PRN Acetaminophen (Tylenol), 1-2 TAB PO Q8 PRN for Mild Pain Review of Systems Constitutional- no fever; no weight loss Eyes- no acute visual changes ENT- no sinus drainage; no pharyngitis Pulmonary- no cough, no wheezing, no shortness of breath Cardiac- See HPI. no palpitations, no orthopnea, no dependent edema GI- See HPI - no dysuria, no hematuria Musculoskeletal- See HPI Derm- no rashes, no new skin lesions, no changing skin lesions Hematologic- no unusual bruising, no unusual bleeding Lymphatics- no adenopathy Endocrine- no polyuria or polydipsia; no heat or cold intolerance Neuro- See HPI Psych- no anxiety, no depression Physical Ex - H&P Physical Exam Vital Signs Date Time Temp Pulse Resp B/P (MAP) Pulse Ox O2 Delivery O2 Flow Rate FiO2 04/17/17 18:22 77 20 133/66 94 Nasal Cannula 2.0 04/17/17 18:10 76 04/17/17 16:24 70 20 114/61 92 Nasal Cannula 2.0 04/17/17 15:23 95 Nasal Cannula 2.0 04/17/17 15:15 36.7 65 20 123/53 91 Room Air General Appearance: + mild distress (Resting comfortably during interview but grimaces in pain with movement.) Head: normocephalic, atraumatic Eyes: normal inspection, sclerae normal ENT: hearing grossly normal Neck: supple, no adenopathy, no JVD, trachea midline Respiratory/Chest: chest non-tender, lungs clear, normal breath sounds, no respiratory distress Cardiovascular: regular rate, rhythm, normal peripheral pulses Abdomen/GI: normal bowel sounds, non tender, soft, no organomegaly Back: normal inspection, + pertinent finding (Tenderness to palpation of lumbar spine and paraspinal muscles. ROM decreased 2/2 pain. ) Extremities/Musculoskelatal: normal inspection, no calf tenderness, no pedal edema Neurologic/Psych: no motor/sensory deficits, alert, normal mood/affect, oriented x 3 Skin: normal color, warm/dry, no rash Diagnostics - H&P Diagnostics Laboratory Results Results Past 24 Hours Test 04/17/17 16:54 Range/Units White Blood Count 7.16 4.8-10.8 K/uL Red Blood Count 3.32 4.2-5.4 M/uL Hemoglobin 11.5 12.0-16.0 g/dL Hematocrit 33.3 37-47 % Mean Corpuscular Volume 100.3 80-100 fL Mean Corpuscular Hemoglobin 34.6 25-34 pg Mean Corpuscular Hemoglobin Concent 34.5 32-36 g/dl Platelet Count 147 130-400 K/uL Mean Platelet Volume 9.2 7.4-10.4 fL Neutrophils (%) (Auto) 79.2 % Lymphocytes (%) (Auto) 14.5 % Monocytes (%) (Auto) 6.3 % Eosinophils (%) (Auto) 0.0 % Basophils (%) (Auto) 0.0 % Neutrophils # (Auto) 5.67 1.4-6.5 K/uL Lymphocytes # (Auto) 1.04 1.2-3.4 K/uL Monocytes # (Auto) 0.45 0.11-0.59 K/uL Eosinophils # (Auto) 0.00 0-0.5 K/uL Basophils # (Auto) 0.00 0-0.2 K/uL RDW Standard Deviation 49.7 36.4-46.3 fL RDW Coefficient of Variation 13.8 11.5-14.5 % Immature Granulocyte % (Auto) 0.0 % Immature Granulocyte # (Auto) 0.00 0.00-0.02 K/uL Erythrocyte Sedimentation Rate 18 0-21 mm/hr Prothrombin Time 10.5 9.0-12.0 SECONDS Prothromb Time International Ratio 1.0 0.9-1.1 Activated Partial Thromboplast Time 28.3 21.0-31.0 SECONDS Partial Thromboplastin Ratio 1.1 Sodium Level 139 136-145 mmol/L Potassium Level 3.9 3.5-5.1 mmol/L Chloride Level 106 98-107 mmol/L Carbon Dioxide Level 27 21-32 mmol/L Anion Gap 5.0 3-11 mmol/L Blood Urea Nitrogen 21 7-18 mg/dl Creatinine 0.81 0.60-1.20 mg/dl Est Creatinine Clear Calc Drug Dose 48.7 ml/min Estimated GFR () 76.8 Estimated GFR (Non- 66.2 BUN/Creatinine Ratio 25.9 10-20 Random Glucose 106 70-99 mg/dl Calcium Level 9.2 8.5-10.1 mg/dl C-Reactive Protein 3.34 0-0.29 mg/dl Diagnostic Radiology CT Lumbar spine: IMPRESSION: 1. No fractures within the lumbar spine. 2. Degenerative changes as described above. 3. 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 Impression - H&P Impression Assessment and Plan This is an 86yo female with a PMH of HTN, osteoporosis and other medical problems listed below who presents with worsening back pain over the past few days. 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 appreciated -May also have a muscular component 2/2 bending and twisting while raking -Pain control: scheduled tylenol, heating pad, tramadol and oxycodone PRN -Avoid opioids due decreased respiratory drive already observed in response to fentanyl, morphine -Incentive spirometry, NC O2 per protocol -PT/OT evals ordered. Ambulate on floor with assistance as tolerated -Fall precautions HTN: -Normotensive -Continue home dose atenolol with hold precautions History of ulcerative colitis: -Per chart review, patient in remission -Denies any symptoms currently -Continue home dose Asacol Osteoporosis: -Fall precautions -Conditioning with PT/OT -Continue ibandronate, Vit D, calcium DVT Ppx: Lovenox Code status: FULL PCP: [facility] Dispo: community services officer to help with discharge due to patient age and potential need for rehab Level of Care Med/Surg Resuscitation Status FULL RESUSCITATION VTE Prophylaxis VTE Risk Assessment Done? Y/N: Yes Risk Level: Moderate Given or contraindicated: Enoxaparin (Lovenox)SQ Note ATTENDING ADDENDUM Record reviewed. Patient interviewed and examined in ED. Care coordinated with Vira Gruber PA-C. Please refer to her documentation for patient's history. Briefly, 86 YO female with history of hypertension, inflammatory bowel disease, and other problems. Developed severe low back pain after doing yard work today; no falls or other trauma. EXAM: General- elderly female, very uncomfortable due to severe back pain VS- as noted Lungs- clear Heart- RRR Abdomen- + BS, soft, nontender Back- lumbar tenderness; low back pain with bilat SLR Extremities- trace pretibial edema Neuro- a bit sedated after receiving analgesics in ED DATA: Lab studies as noted. LUMBAR SPINE CT IMPRESSION: 1. No fractures within the lumbar spine. 2. Degenerative changes as described above. 3. 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 Electronically signed by: Yong Ardon M.D. 04/17/2017 4:53 PM Dictated Date/Time: 04/17/2017 4:49 PM ASSESSMENT AND PLAN: Severe low back pain after doing yardwork. CT findings as noted above. Analgesics. PT / OT. DVT prophylaxis- SQ enoxaparin. Discharge disposition to be determined- may need skilled care. Please refer to DESIRAE Gruber's documentation for discussion of other issues. Luis Remy MD Physical Exam (per Admitting): General Appearance: + mild distress (Resting comfortably during interview but grimaces in pain with movement.) Head: normocephalic, atraumatic Eyes: normal inspection, sclerae normal ENT: hearing grossly normal Neck: supple, no adenopathy, no JVD, trachea midline Respiratory/Chest: chest non-tender, lungs clear, normal breath sounds, no respiratory distress Cardiovascular: regular rate, rhythm, normal peripheral pulses Abdomen/GI: normal bowel sounds, non tender, soft, no organomegaly Back: normal inspection, + pertinent finding (Tenderness to palpation of lumbar spine and paraspinal muscles. ROM decreased 2/2 pain. ) Extremities/Musculoskelatal: normal inspection, no calf tenderness, no pedal edema Neurologic/Psych: no motor/sensory deficits, alert, normal mood/affect, oriented x 3 Skin: normal color, warm/dry, no rash Hospital Course This is an 86yo female with a PMH of HTN, osteoporosis and other medical problems listed below who presents with worsening back pain over the past few days. 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 appreciated -Pain control: scheduled Tylenol, heating pad, tramadol and oxycodone PRN -Avoid opioids due decreased respiratory drive already observed in response to fentanyl, morphine -Fall precautions -Pain seems to be reasonably controlled -Continue PT/OT-doing well -denies any new symptoms -continue current pain regimen -pain is controlled -Ready to go home today HTN: -Normotensive -Continue home dose atenolol with hold precautions -Blood pressure remains stable Ulcerative colitis: -Per chart review, patient in remission -Continue home dose Asacol -No acute symptoms Osteoporosis: -Fall precautions -Conditioning with PT/OT -Continue ibandronate, Vit D, calcium DVT Ppx: Lovenox Code status: FULL PCP: [facility] Dispo: community services officer to help with discharge due to patient age and potential need for rehab Discharge today Total time spent on discharge = 35 minutes This includes examination of the patient, discharge planning, medication reconciliation, and communication with other providers. Discharge Instructions Date of Service Apr 21, 2017. Admission Reason for Admission: Intractable Back Pain Discharge Discharge Diagnosis / Problem: Back pain Discharge Goals Goal(s): Prevent Disease Progression Activity Recommendations Activity Limitations: resume your previous activity (Take precaution to avoid fall) . Instructions / Follow-Up Instructions / Follow-Up Dr Arriola on 04/25/17 at 1:45 PM.OP Physical therapy Current Hospital Diet Patient's current hospital diet: AHA Diet (Heart Healthy) Discharge Diet Recommended Diet: AHA Diet (Heart Healthy) Pending Studies Studies pending at discharge: no Medical Emergencies . Who to Call and When: Medical Emergencies: If at any time you feel your situation is an emergency, please call 911 immediately. . Non-Emergent Contact Non-Emergency issues call your: Primary Care Provider . 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 "Provider Documentation" section prepared by Catarino Chavarria. . VTE Core Measure Inpt VTE Proph given/why not?: Enoxaparin (Lovenox)SQ <Electronically signed by Catarino Chavarria M.D.> Signed: 04/21/17 8415 Additional Copies To Raquel Arriola M.D. (MEDICAL)
== END 2017-04-21 17:06 | disposition home or self-care (01) ==
LOC: EDBD 15:06 → C.EDB 15:07 → C.4E 18:50 → ENRESERV 19:27
PROVIDERS: ADMIT Hospitalist; ATTEND Internal Medicine
DX: M54.9 Dorsalgia, unspecified (principal); I10 Essential (primary) hypertension; M81.0 Age-related osteoporosis without current pathological fracture; K51.90 Ulcerative colitis, unspecified, without complications; Z90.49 Acquired absence of other specified parts of digestive tract; Z90.710 Acquired absence of both cervix and uterus; Z87.891 Personal history of nicotine dependence

== ENCOUNTER 2017-07-11 21:33 | Inpatient (IN) | payer OTHER ==
[~2017-07-11] VITALS: Ht 149.9 cm; Wt 77.9 kg
[~2017-07-11 21:33] MED LIST changes: +ACET-1256 PO; -ATEN-173; +ATEN25TA PO; +CALC-388 PO; +CHOL2000 PO; -CLC100; -FRRS300; +IBAN150T PO; +LOVA40TA4 PO; +MESA1TAB4 PO; -MESALAMINE; +OMEG10007 PO; -PRMVC; +RXC5 PO; +ULT50X PO
[2017-07-11 22:06] LABS: HEMATOCRIT 27.8 % (37-47); HEMOGLOBIN 10.4 g/dL (12.0-16.0); MEAN CELL VOLUME 109.9 fL (80-100); MEAN CORPUSCULAR HEMOGLOBIN 41.1 pg (25-34); MEAN CORPUSCULAR HGB CONC 37.4 g/dl (32-36); MEAN PLATELET VOLUME 9.4 fL (7.4-10.4); PLATELET COUNT 173 K/uL (130-400); RED CELL DISTRIBUTION WIDTH CV 17.5 % (11.5-14.5); WHITE BLOOD COUNT 6.14 K/uL (4.8-10.8)
--- NOTE | 2017-07-11 22:12 | DIAGNOSTIC IMAGING REPORT ---
HEAD WITHOUT CONTRAST (CT) CT DOSE: 537.48 mGy.cm HISTORY: EVALUATE ALTERED MENTAL STATUS/WEAKNESS TECHNIQUE: Multiaxial CT images of the head were performed without the use of intravenous contrast. A dose lowering technique was utilized adhering to the principles of ALARA. Comparison: None. Findings: The paranasal sinuses and mastoid air cells are clear. The calvarium and skull base are intact. The ventricles and sulci are within normal limits. There is no mass, hematoma, midline shift, or acute infarct. Impression: No acute intracranial abnormality. The above report was generated using voice recognition software. It may contain grammatical, syntax or spelling errors. Electronically signed by: Jaun Beth M.D. 07/11/2017 10:10 PM Dictated Date/Time: 07/11/2017 10:08 PM
[2017-07-11 22:17] LABS: PTT PATIENT 23.6 SECONDS (21.0-31.0)
[2017-07-11] MEDS ORDERED: ONDANSETRON INJ 2 MG/ML 2 ML VIAL IV STA (22:22)
[2017-07-11 22:36] LABS: ALBUMIN 3.5 gm/dl (3.4-5.0); ALKALINE PHOSPHATASE 62 U/L (45-117); BLOOD UREA NITROGEN 20 mg/dl (7-18); CARBON DIOXIDE 29 mmol/L (21-32); CKMB 1.9 ng/ml (0.5-3.6); CREATININE 0.77 mg/dl (0.60-1.20); LIPASE 232 U/L (73-393); POTASSIUM 3.5 mmol/L (3.5-5.1); SODIUM 140 mmol/L (136-145); TOTAL PROTEIN 7.5 gm/dl (6.4-8.2)
[2017-07-11 22:37] LABS: ALT/SGPT 14 U/L (12-78); AST/SGOT 24 U/L (15-37); GLUCOSE 116 mg/dl (70-99)
--- NOTE | 2017-07-11 22:40 | DIAGNOSTIC IMAGING REPORT ---
CHEST ONE VIEW PORTABLE CLINICAL HISTORY: EVALUATE ALTERED MENTAL STATUS/WEAKNESS dyspnea COMPARISON STUDY: No previous studies for comparison. FINDINGS: Early parenchymal infiltrate left base. Minimal infiltrative change right base. Heart top limits normal in terms of size. Upper lungs are clear. IMPRESSION: Mild left and to a lesser extent right basilar infiltrate. The above report was generated using voice recognition software. It may contain grammatical, syntax or spelling errors. Electronically signed by: Jaun Beth M.D. 07/11/2017 10:39 PM Dictated Date/Time: 07/11/2017 10:38 PM
[2017-07-11] MEDS ORDERED: CEFTRIAXONE SOD INJ 1 GM ADDVIAL IV STA (22:56)
[2017-07-11] MEDS ORDERED: CEFEPIME IV 1,000 MG in DEXTROSE 5% 100ML 100 ML IV STA (22:59)
--- NOTE | 2017-07-11 22:59 | EMERGENCY ROOM VISIT NOTE ---
History Report prepared by Jennifer: Jillian Jose Under the Supervision of: Dr. Sky Moreno D.O. 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 The patient presents to the ED by EMS. She notes she suddenly began feeling weak and fatigued. She felt like she might pass out and could not stand. She also reports nausea, vomiting, and diarrhea. She denies any headache, chest pain, or abdominal pain. Source of History: patient, EMS Onset: PARTY PLAN SALESPERSON Position: other (global) Quality: other (generalized weakness) Timing: other (persistent) Associated Symptoms: + nausea, + vomiting, + diarrhea, No headache, No chest pain, No abdominal pain Review of Systems See HPI for pertinent positives & negatives. A total of 10 systems reviewed and were otherwise negative. Past Medical & Surgical Medical Problems: (1) Aortic insufficiency (2) History of ulcerative colitis (3) Hypertension (4) Osteoporosis Surgical Problems: (1) S/P cholecystectomy (2) S/P hysterectomy Family History Patient reports no known family medical history. Social History Smoking Status: Former Smoker Marital Status: Occupation Status: retired Current/Historical Medications Scheduled Atenolol (Tenormin), 25 MG PO DAILY Calcium Carbonate-Vitamin D (Calcium + D3 600-200 mg-Unit), 1 TAB PO BID Cholecalciferol (Vitamin D3), 1 CAP PO DAILY Fish Oil ([place]-3), 1 CAP PO DAILY Ibandronate Sodium (Boniva), 150 MG PO MONTHLY Lovastatin (Mevacor), 40 MG PO DAILY Mesalamine (Asacol Hd), 1,600 MG PO BID Scheduled PRN Acetaminophen (Tylenol), 1-2 TAB PO Q8 PRN for Mild Pain Oxycodone HCl (Oxycodone HCl), 5 MG PO Q6H PRN for severe Tramadol HCl (Tramadol HCl), 25 MG PO Q6 PRN for Moderate Pain Allergies Coded Allergies: No Known Allergies (Verified , 07/11/17) Physical Exam Vital Signs Date Time Temp Pulse Resp B/P (MAP) Pulse Ox O2 Delivery O2 Flow Rate FiO2 07/11/17 22:36 66 14 133/85 97 Nasal Cannula 2.0 07/11/17 21:55 73 07/11/17 21:52 96 Nasal Cannula 2.0 07/11/17 21:50 89 Room Air 07/11/17 21:33 35.7 76 24 151/66 96 Room Air Physical Exam VITAL SIGNS: were reviewed as above. GENERAL:Non-toxic in appearance. SKIN: Warm dry and pink. HEAD: Normocephalic and atraumatic. OROPHARYNX: Is clear and moist NECK: Supple without lymphadenopathy or meningismus. LUNGS: clear. HEART: Regular rate and rhythm. ABDOMEN: Soft and nontender. EXTREMITIES: Warm and well perfused. NEUROLOGICALLY: Awake alert and oriented without focal deficit. Symmetrical generalized weakness in all 4 extremities. Cranial nerves 2-12 are intact. There is no pronator drift. Cerebellar testing is within normal limits. There is no nystagmus. There is no facial droop. Speech is weak, but understandable. Vision is grossly normal. MUSCULOSKELETAL: Good muscle tone. No evidence of trauma. Medical Decision & Procedures ER Provider Diagnostic Interpretation: X ray results and stated below per my interpretation and radiology interpretation. Radiology results as stated below per my review and radiologist interpretation: CHEST ONE VIEW PORTABLE CLINICAL HISTORY: EVALUATE ALTERED MENTAL STATUS/WEAKNESS dyspnea COMPARISON STUDY: No previous studies for comparison. FINDINGS: Early parenchymal infiltrate left base. Minimal infiltrative change right base. Heart top limits normal in terms of size. Upper lungs are clear. IMPRESSION: Mild left and to a lesser extent right basilar infiltrate. The above report was generated using voice recognition software. It may contain grammatical, syntax or spelling errors. Electronically signed by: Jaun Beth M.D. 07/11/2017 10:39 PM Dictated Date/Time: 07/11/2017 10:38 PM HEAD WITHOUT CONTRAST (CT) CT DOSE: 537.48 mGy.cm HISTORY: EVALUATE ALTERED MENTAL STATUS/WEAKNESS TECHNIQUE: Multiaxial CT images of the head were performed without the use of intravenous contrast. A dose lowering technique was utilized adhering to the principles of ALARA. Comparison: None. Findings: The paranasal sinuses and mastoid air cells are clear. The calvarium and skull base are intact. The ventricles and sulci are within normal limits. There is no mass, hematoma, midline shift, or acute infarct. Impression: No acute intracranial abnormality. The above report was generated using voice recognition software. It may contain grammatical, syntax or spelling errors. Electronically signed by: Jaun Beth M.D. 07/11/2017 10:10 PM Dictated Date/Time: 07/11/2017 10:08 PM Laboratory Results 07/11/17 21:12 Red Blood Count 2.53, Mean Corpuscular Volume 109.9, Mean Corpuscular Hemoglobin 41.1, Mean Corpuscular Hemoglobin Concent 37.4, Mean Platelet Volume 9.4 07/11/17 21:12 Test 07/11/17 21:12 07/11/17 22:30 White Blood Count 6.14 K/uL (4.8-10.8) Red Blood Count 2.53 M/uL (4.2-5.4) Hemoglobin 10.4 g/dL (12.0-16.0) Hematocrit 27.8 % (37-47) Mean Corpuscular Volume 109.9 fL (80-100) Mean Corpuscular Hemoglobin 41.1 pg (25-34) Mean Corpuscular Hemoglobin Concent 37.4 g/dl (32-36) Platelet Count 173 K/uL (130-400) Mean Platelet Volume 9.4 fL (7.4-10.4) RDW Standard Deviation 67.0 fL (36.4-46.3) RDW Coefficient of Variation 17.5 % (11.5-14.5) Neutrophils % (Manual) 37.9 % Lymphocytes % (Manual) 27.9 % Monocytes % (Manual) 1.8 % Eosinophils % (Manual) 1.8 % Neutrophils # (Manual) 2.33 K/uL (1.4-6.5) Total Absolute Neutrophils 2.33 K/uL (1.4-6.5) Lymphocytes # (Manual) 1.71 K/uL (1.2-3.4) Total Absolute Lymphocytes 3.59 K/uL (1.2-3.4) Monocytes # (Manual) 0.11 K/uL (0.11-0.59) Eosinophils # (Manual) 0.11 K/uL (0-0.5) Percent Large Granular Lymphocytes 30.6 % Absolute Large Granular Lymphocytes 1.88 K/uL Anisocytosis PRESENT Macrocytosis PRESENT Prothrombin Time 10.0 SECONDS (9.0-12.0) Prothromb Time International Ratio 1.0 (0.9-1.1) Activated Partial Thromboplast Time 23.6 SECONDS (21.0-31.0) Partial Thromboplastin Ratio 0.9 Anion Gap 8.0 mmol/L (3-11) Estimated GFR () 81.6 Estimated GFR (Non- 70.4 BUN/Creatinine Ratio 26.5 (10-20) Calcium Level 9.0 mg/dl (8.5-10.1) Magnesium Level 2.0 mg/dl (1.8-2.4) Total Bilirubin 0.4 mg/dl (0.2-1) Direct Bilirubin 0.1 mg/dl (0-0.2) Aspartate Amino Transf (AST/SGOT) 24 U/L (15-37) Alanine Aminotransferase (ALT/SGPT) 14 U/L (12-78) Alkaline Phosphatase 62 U/L (45-117) Total Creatine Kinase 57 U/L (26-192) Creatine Kinase MB 1.9 ng/ml (0.5-3.6) Creatine Kinase MB Ratio 3.3 (0-3.0) Troponin I 0.041 ng/ml (0-0.045) Total Protein 7.5 gm/dl (6.4-8.2) Albumin 3.5 gm/dl (3.4-5.0) Lipase 232 U/L (73-393) Thyroid Stimulating Hormone (TSH) 5.950 uIu/ml (0.300-4.500) Urine Color DK YELLOW Urine Appearance CLEAR (CLEAR) Urine pH 5.5 (4.5-7.5) Urine Specific Ethel 1.030 (1.000-1.030) Urine Protein 1+ (NEG) Urine Glucose (UA) NEG (NEG) Urine Ketones TRACE (NEG) Urine Occult Blood NEG (NEG) Urine Nitrite POS (NEG) Urine Bilirubin NEG (NEG) Urine Urobilinogen NEG (NEG) Urine Leukocyte Esterase SMALL (NEG) Urine WBC (Auto) >30 /hpf (0-5) Urine RBC (Auto) 0-4 /hpf (0-4) Urine Hyaline Casts (Auto) 10-30 /lpf (0-5) Urine Epithelial Cells (Auto) 0-5 /lpf (0-5) Urine Bacteria (Auto) 4+ (NEG) Laboratory results as stated above per my review. Medications Administered Medications (Trade) Dose Ordered Sig/Fabrice Route Start Time Stop Time Status Last Admin Dose Admin Ondansetron HCl (Zofran Inj) 4 mg NOW STAT IV 07/11/17 22:22 07/11/17 22:23 DC 07/11/17 22:26 4 MG Ceftriaxone Sodium (Rocephin Inj) 1 gm NOW STAT IV 07/11/17 22:56 07/11/17 22:57 DC 07/11/17 23:18 1 GM ECG Indication: weakness Rate (beats per minute): 59 Rhythm: sinus bradycardia Findings: RBBB, no ectopy, other (no acute injury) ED Course 2136: Previous medical records were reviewed. The patient was evaluated in room A11B. A complete history and physical examination was performed. 2221: Zofran Inj 4 mg IV. 2255: Rocephin Inj 1 gm IV. 2259: Cefepime HCl 1000 mg/Dextrose 111 ml @ 200 mls/hr IV. 2300: On reevaluation, the patient is stable. I discussed the results and findings with her. She verbalized agreement of the treatment plan. The patient will be evaluated for further management and care. 2313: I [facility] the patient's [facility] The patient will be evaluated for further treatment and disposition. Medical Decision Differential includes acute coronary syndrome, myocardial infarction, CVA, TIA, anemia, infection, pneumonia, UTI, pyelonephritis, poor nutrition, dehydration, electrolyte disturbance,hypoglycemia. This is an 86-year-old female who presents to the ED with a chief complaint of not feeling well. The patient originally told her family that she was having pain all over. The patient, upon EMS arrival, denied pain. She had a couple of episodes where her speech seemed to be a little slurred. The patient was not treated with any medication in route here. She did have a couple of episodes of vomiting but after vomiting stated that she felt better. On my evaluation, the patient denied having any discomfort anywhere. She denies headaches, chest pains or shortness of breath. No abdominal pains. She states that her nausea has resolved. She reports generalized fatigue and weakness. She states that she originally felt like she might pass out when she was having the nausea and vomiting. EMS also reported the patient did have some diarrhea. Her vital signs are stable. Physical exam reveals generalized weakness. There is no focal deficits to suggest CVA. Her speech seemed to be weak but there was no specific consistent slurring or dysarthria. Her abdomen is soft and nontender. Her lungs are clear. She does not appear to be in any distress. The patient has some additional vomiting while here. She was given IV Zofran. A CT scan of brain was negative for acute disease. EKG shows a sinus bradycardia with a right bundle-branch block. CBC is unremarkable. Chest x-ray reveals bilateral basilar infiltrates. Complete metabolic panel was unremarkable, troponin was negative. Urine shows infection. Patient was treated with IV Rocephin and IV cefepime. She'll be seen by the hospitalist for further inpatient evaluation and care. Medication Reconcilliation Current Medication List: was personally reviewed by me Blood Pressure Screening Patient's blood pressure: Normal blood pressure Blood pressure disposition: Did not require urgent referral Consults Time Called: 2300 Consulting Physician: Dr. Wyatt [facility] hospitalist Returned Call: [phone] Discussed the patient's case. The patient will be evaluated for further treatment and disposition. Impression Primary Impression: UTI (urinary tract infection) Additional Impressions: Vomiting Pneumonia Scribe Attestation The scribe's documentation has been prepared under my direction and personally reviewed by me in its entirety. I confirm that the note above accurately reflects all work, treatment, procedures, and medical decision making performed by me. Departure Information Dispostion Being Evaluated By Hospitalist Referrals No Doctor, Assigned (PCP) Patient Instructions My [facility] Problem Qualifiers
[2017-07-12] VITALS (14 sets, daily range): BP systolic 113–146; BP diastolic 69–92; PULSE 68–88; TEMP 35.6–36.7; O2SAT 94–98; Ht 149.9 cm; Wt 77.9 kg
--- NOTE | 2017-07-12 01:10 | NUR ---
A: Admission completed by [facility] BEY. Oriented to room and call ricks system. Temp 35.6. Will place on montserrat hugger per MD order. NSS infusing at 80cc/hour. document control coordinator placed on patient. NSR- 60s with PVCs. Bed alarm on for patient safety. Will continue to monitor and assess patient.
[2017-07-12] MEDS ORDERED: CEFEPIME CONSULT ACTIVE PRN (01:13)
[2017-07-12] MEDS ORDERED: ONDANSETRON INJ 2 MG/ML 2 ML VIAL IV PRN (01:15)
[2017-07-12] MEDS ORDERED: AZITHROMYCIN~PHARMACY CONSULT IN PROGRESS PRN (01:15)
[2017-07-12] MEDS ORDERED: ACETAMINOPHEN 325 MG TAB PO PRN (01:15)
[2017-07-12] MEDS ORDERED: SODIUM CHLORIDE 0.9% 1000ML 1,000 ML IV SCH (01:15)
--- NOTE | 2017-07-12 01:26 | History and Physical ---
History & Physical Date & Time of Service: Jul 12, 2017 at 01:15 Chief Complaint: Weakness Primary Care Physician: Raquel Arriola M.D. (MEDICAL) History of Present Illness Source: patient, clinic records 86 year old female with history of HTN, HLD, Ulcerative Colitis presenting with weakness. Follows with Dr. Arriola for PCP. Patient reports that she was feeling fine until this evening when she started to feel weak and lightheaded. At 8pm, she was in the bathroom but felt very weak to the point that she had to crawl her way back to the bed. She had 1 episode of non bloody vomiting. She reports productive cough for 1-2 weeks now, no dyspnea. Denies abdominal pain, dysuria, diarrhea. Denies focal neuro deficits, confusion. She was then brought to the ER. At the ER, patient's BP 151/66, Temp ~35. UA showed signs of UTI and CXR showed possible bibasilar pneumonia. Cefepime was started. On exam, patient seen in a montserrat hugger, alert, oriented, not in distress. Denies any other active symptoms. Past Medical/Surgical History Medical Problems: (1) Aortic insufficiency Status: Chronic (2) History of ulcerative colitis Status: Chronic (3) Hypertension Status: Chronic (4) Osteoporosis Status: Chronic Surgical Problems: (1) S/P cholecystectomy Status: Resolved (2) S/P hysterectomy Status: Resolved Family History Patient reports no known family medical history. Social History Smoking Status: Former Smoker Marital Status: Housing status: lives with family Occupational Status: retired Immunizations History of Influenza Vaccine: Unknown Influenza Vaccine Date: May 25, 2006 History of Tetanus Vaccine?: Unknown History of Pneumococcal: Unknown Pneumococcal Date: Jan 22, 2006 History of Hepatitis B Vaccine: Unknown Multi-Drug Resistant Organisms History of MDRO: No Allergies Coded Allergies: No Known Allergies (Verified , 07/11/17) Home Medications Scheduled Atenolol (Tenormin), 25 MG PO DAILY Calcium Carbonate-Vitamin D (Calcium + D3 600-200 mg-Unit), 1 TAB PO BID Cholecalciferol (Vitamin D3), 1 CAP PO DAILY Fish Oil ([place]-3), 1 CAP PO DAILY Ibandronate Sodium (Boniva), 150 MG PO MONTHLY Lovastatin (Mevacor), 40 MG PO DAILY Mesalamine (Asacol Hd), 1,600 MG PO BID Scheduled PRN Acetaminophen (Tylenol), 1-2 TAB PO Q8 PRN for Mild Pain Oxycodone HCl (Oxycodone HCl), 5 MG PO Q6H PRN for severe Tramadol HCl (Tramadol HCl), 25 MG PO Q6 PRN for Moderate Pain Review of Systems Constitutional- no fever; no weight loss Eyes- no acute visual changes ENT- no sinus drainage; no pharyngitis Pulmonary- as above Cardiac- no chest pain, no palpitations, no orthopnea, no dependent edema GI- no nausea, no vomiting, no diarrhea, no melena, no hematochezia - no dysuria, no hematuria Musculoskeletal- no arthralgias, no myalgias Derm- no rashes, no new skin lesions, no changing skin lesions Hematologic- no unusual bruising, no unusual bleeding Lymphatics- no adenopathy Endocrine- no polyuria or polydipsia; no heat or cold intolerance Neuro- no headaches, no focal neurologic symptoms Psych- no anxiety, no depression Physical Exam Vital Signs Date Time Temp Pulse Resp B/P (MAP) Pulse Ox O2 Delivery O2 Flow Rate FiO2 07/12/17 01:05 35.0 66 18 138/70 95 07/12/17 00:25 35.4 07/12/17 00:03 62 17 99 Nasal Cannula 2.0 07/12/17 00:00 127/54 07/11/17 23:33 52 17 97 Nasal Cannula 2.0 07/11/17 23:30 131/72 07/11/17 23:03 70 13 96 Nasal Cannula 2.0 07/11/17 23:00 138/72 07/11/17 22:36 66 14 133/85 97 Nasal Cannula 2.0 07/11/17 22:36 133/85 07/11/17 22:33 75 07/11/17 22:22 140/61 07/11/17 22:09 140/61 07/11/17 21:55 73 07/11/17 21:52 96 Nasal Cannula 2.0 07/11/17 21:50 89 Room Air 07/11/17 21:39 151/66 07/11/17 21:33 35.7 76 24 151/66 96 Room Air General Appearance: WD/WN, no apparent distress Head: normocephalic, atraumatic Eyes: normal inspection, PERRL, EOMI, sclerae normal ENT: normal ENT inspection, hearing grossly normal, pharynx normal Neck: supple, no adenopathy, thyroid normal, no JVD, trachea midline Respiratory/Chest: chest non-tender, lungs clear, normal breath sounds, no respiratory distress, no accessory muscle use Cardiovascular: regular rate, rhythm, no edema, no gallop, no murmur, normal peripheral pulses Abdomen/GI: normal bowel sounds, non tender, soft Back: normal inspection, no CVA tenderness Extremities/Musculoskelatal: normal inspection, no calf tenderness, normal capillary refill, no pedal edema, non-tender Neurologic/Psych: air intercept controller supervisor II-XII nml as tested, no motor/sensory deficits, alert, normal mood/affect, oriented x 3 Skin: normal color, warm/dry, no rash Lymphatic: no adenopathy Diagnostics Laboratory Results Results Past 24 Hours Test 07/11/17 21:12 07/11/17 22:30 Range/Units White Blood Count 6.14 4.8-10.8 K/uL Red Blood Count 2.53 4.2-5.4 M/uL Hemoglobin 10.4 12.0-16.0 g/dL Hematocrit 27.8 37-47 % Mean Corpuscular Volume 109.9 80-100 fL Mean Corpuscular Hemoglobin 41.1 25-34 pg Mean Corpuscular Hemoglobin Concent 37.4 32-36 g/dl Platelet Count 173 130-400 K/uL Mean Platelet Volume 9.4 7.4-10.4 fL RDW Standard Deviation 67.0 36.4-46.3 fL RDW Coefficient of Variation 17.5 11.5-14.5 % Neutrophils % (Manual) 37.9 % Lymphocytes % (Manual) 27.9 % Monocytes % (Manual) 1.8 % Eosinophils % (Manual) 1.8 % Neutrophils # (Manual) 2.33 1.4-6.5 K/uL Total Absolute Neutrophils 2.33 1.4-6.5 K/uL Lymphocytes # (Manual) 1.71 1.2-3.4 K/uL Total Absolute Lymphocytes 3.59 1.2-3.4 K/uL Monocytes # (Manual) 0.11 0.11-0.59 K/uL Eosinophils # (Manual) 0.11 0-0.5 K/uL Percent Large Granular Lymphocytes 30.6 % Absolute Large Granular Lymphocytes 1.88 K/uL Anisocytosis PRESENT Macrocytosis PRESENT Prothrombin Time 10.0 9.0-12.0 SECONDS Prothromb Time International Ratio 1.0 0.9-1.1 Activated Partial Thromboplast Time 23.6 21.0-31.0 SECONDS Partial Thromboplastin Ratio 0.9 Sodium Level 140 136-145 mmol/L Potassium Level 3.5 3.5-5.1 mmol/L Chloride Level 103 98-107 mmol/L Carbon Dioxide Level 29 21-32 mmol/L Anion Gap 8.0 3-11 mmol/L Blood Urea Nitrogen 20 7-18 mg/dl Creatinine 0.77 0.60-1.20 mg/dl Estimated GFR () 81.6 Estimated GFR (Non- 70.4 BUN/Creatinine Ratio 26.5 10-20 Random Glucose 116 70-99 mg/dl Calcium Level 9.0 8.5-10.1 mg/dl Magnesium Level 2.0 1.8-2.4 mg/dl Total Bilirubin 0.4 0.2-1 mg/dl Direct Bilirubin 0.1 0-0.2 mg/dl Aspartate Amino Transf (AST/SGOT) 24 15-37 U/L Alanine Aminotransferase (ALT/SGPT) 14 12-78 U/L Alkaline Phosphatase 62 45-117 U/L Total Creatine Kinase 57 26-192 U/L Creatine Kinase MB 1.9 0.5-3.6 ng/ml Creatine Kinase MB Ratio 3.3 0-3.0 Troponin I 0.041 0-0.045 ng/ml Total Protein 7.5 6.4-8.2 gm/dl Albumin 3.5 3.4-5.0 gm/dl Lipase 232 73-393 U/L Thyroid Stimulating Hormone (TSH) 5.950 0.300-4.500 uIu/ml Urine Color DK YELLOW Urine Appearance CLEAR CLEAR Urine pH 5.5 4.5-7.5 Urine Specific [place] 1.030 1.000-1.030 Urine Protein 1+ NEG Urine Glucose (UA) NEG NEG Urine Ketones TRACE NEG Urine Occult Blood NEG NEG Urine Nitrite POS NEG Urine Bilirubin NEG NEG Urine Urobilinogen NEG NEG Urine Leukocyte Esterase SMALL NEG Urine WBC (Auto) >30 0-5 /hpf Urine RBC (Auto) 0-4 0-4 /hpf Urine Hyaline Casts (Auto) 10-30 0-5 /lpf Urine Epithelial Cells (Auto) 0-5 0-5 /lpf Urine Bacteria (Auto) 4+ NEG Microbiology Results 07/11/17 Blood Culture, Received Pending 07/11/17 Blood Culture, Received Pending 07/11/17 Urine Culture, Received Pending Diagnostic Radiology CXR IMPRESSION: Mild left and to a lesser extent right basilar infiltrate. CT head: Impression: No acute intracranial abnormality. EKG HR 59, sinus rhythm, new RBBB, no signs acute infarct/ischemia Impression Assessment and Plan 86 year old female with history of HTN, HLD, Ulcerative Colitis presenting with weakness. WEAKNESS, LIKELY SECONDARY TO: UTI - has history of pansensitive Klebsiella - ff up urine culture - empiric Cefepime IV IV NSS, monitor closely, patient has aortic insufficiency POSSIBLE PNEUMONIA - ff up sputum cultures - Cefepime + Azithromycin HYPOTHERMIA - baseline temp 97F based on recent outpatient visit likely from underlying infection Montserrat Lo HYPERTENSION - BP stable - on Atenolol AORTIC INSUFFICIENCY - monitor volume status while on IV fluids ULCERATIVE COLITIS - on Mesalamine DVT PROPHYLAXIS SCDs only patient has ulcerative colitis DNR after detailed discussion with patient LIVES AT HOME WITH SON needs PT/OT ff up with PCP Dr. Arriola VTE Prophylaxis VTE Risk Assessment Done? Y/N: Yes Risk Level: Moderate Given or contraindicated: SCD's
--- NOTE | 2017-07-12 02:15 | NUR ---
A: 0215--Leslie Hugger placed on patient on medium heat setting. Beginning T: 35.6 Rectal (Unable to obtain by other routes). Will follow protocol for Q30min temps. At 0245-- T: 35.8 (Axillary), heat turned to high setting.
[2017-07-12] MEDS: AZITHROMYCIN 500 MG / D5W 250 ML IV SCH ×2 (02:32)
--- NOTE | 2017-07-12 04:48 | NUR ---
A: Patient stated she is feeling very warm. Temp at 0415: 36.7 Patient began to vomit and dry heave. Leslie holguin removed for 20 minutes to change patient linens. Temp recheck was 36.4. Patient is very weak and can not hold extremities against gravity. Addendum: 07/12/17 at 0458 by Gely Eddy RN NIH stroke scale performed-13 Addendum: 07/12/17 at 0520 by Gely Eddy RN [id number]: Dr. Wyatt paged and in to see patient at bedside. Patient T: 36.3. Per IVON holguin removed, but told to place back on patient if Temp falls to 36. Other VSS. Will recheck temp in 30 mins.
--- NOTE | 2017-07-12 05:45 | Progress Note ---
Progress Note Date of Service Jul 12, 2017. Progress Note seen patient at the bedside per RN's request as patient appeared weaker on exam, patient is easily rousable, states she feels weak/tired, easily drifts back to sleep VS noted, BP systolic 140s, HR 80s, temp 36.4 denies shortness of breath, chest pain, headache, dizziness, abdominal pain clear breath sounds bilaterally abdomen non distended, soft no facial droop, tongue midline, moves all extremities equally continue present management Curtis VARELA
[2017-07-12] MEDS ORDERED: NURSING DECISION MEDICATION ORDER SCH (06:15)
--- NOTE | 2017-07-12 08:00 | NUR ---
A: Drowsy, awakens to name, oriented x4. VSS on 2L, temp is 36.4 orally with Leslie Hugger off. Refuses breakfast at this time, requesting a drink, hot tea provided per request. Resting comfortably in bed at this time. Denies pain, shortness of breath or chest pain. Sinus rhythm on monitor. Call ricks within reach. Continue to monitor.
--- NOTE | 2017-07-12 12:00 | NUR ---
A: Assessment unchanged. Maintaining temp at 36.3. Denies needs at this time. Call ricks within reach. Continue to monitor.
[2017-07-12] MEDS: CEFEPIME IV 1,000 MG in SYRINGE 0 ML IV SCH (12:29)
[2017-07-12] MEDS: SODIUM CHLORIDE 0.9% 1000ML 1,000 ML IV SCH (15:32)
--- NOTE | 2017-07-12 16:00 | NUR ---
A: Assessment unchanged. Pt. continues to have severe weakness, but states that she is feeling a little better. Family at bedside. Denies pain, chest pain or shortness of breath at this time. Continue to reposition q2 hours. Call ricks within reach. Continue to monitor.
--- NOTE | 2017-07-12 19:23 | Progress Note ---
Internal Med Progress Note Date of Service: Jul 12, 2017. Provider Documentation: says feeling slightly better than yesterday. Hemodynamics stable. Weak. afebrile. Exam: General-Alert sand awake. Not in distress ENT-Normal hearing Neck-no neck masses supple Lungs-cta b/l no wheezing no crackles Heart-S1 and S2 heard regular rate and rthym, no murmurs Abdomen-Soft bowel sounds present non tender no distension Extremities-no edema no erythema Neuro-alert and awake moves extremities ASSESSMENT & PLAN: 86 year old female with history of HTN, HLD, Ulcerative Colitis presenting with weakness. WEAKNESS, LIKELY SECONDARY TO: UTI history of pansensitive Klebsiella on iv cefepime will f/u cx POSSIBLE PNEUMONIA Will ff up sputum cultures On Cefepime + Azithromycin HYPOTHERMIA baseline temp 97F based on recent outpatient visit likely from underlying infection Leslie Lo improved HYPERTENSION BP stable on Atenolol Will monitor. AORTIC INSUFFICIENCY Will monitor volume status while on IV fluids ULCERATIVE COLITIS on Mesalamine DVT PROPHYLAXIS SCDs only patient has ulcerative colitis DNR as per H and P DISPOSITION LIVES AT HOME WITH SON PT/OT ff up with PCP Dr. Arriola Vital Signs: Date Time Temp Pulse Resp B/P (MAP) Pulse Ox O2 Delivery O2 Flow Rate FiO2 07/13/17 14:52 36.6 66 18 137/74 (95) 92 Room Air 07/13/17 12:00 Room Air 07/13/17 11:16 36.5 63 18 126/77 (93) 93 Room Air 07/13/17 08:17 59 119/71 (87) 95 Room Air 07/13/17 08:00 Room Air 07/13/17 07:15 36.5 102 18 117/71 (86) 91 Nasal Cannula 2.0 07/13/17 05:27 36.5 62 18 111/69 (83) 96 Nasal Cannula 2.0 07/13/17 04:00 Nasal Cannula 2.0 07/13/17 00:00 Nasal Cannula 2.0 07/12/17 23:56 36.5 68 18 119/69 (86) 97 Nasal Cannula 2.0 07/12/17 20:00 Nasal Cannula 2.0 07/12/17 19:46 36.5 68 16 121/72 (88) 97 Nasal Cannula 2.0 07/12/17 16:00 Nasal Cannula 2.0 Lab Results: Results Past 24 Hours Test 07/13/17 06:34 Range/Units White Blood Count 5.26 4.8-10.8 K/uL Red Blood Count 2.26 4.2-5.4 M/uL Hemoglobin 8.6 12.0-16.0 g/dL Hematocrit 25.0 37-47 % Mean Corpuscular Volume 110.6 80-100 fL Mean Corpuscular Hemoglobin 38.1 25-34 pg Mean Corpuscular Hemoglobin Concent 34.4 32-36 g/dl Platelet Count 157 130-400 K/uL Mean Platelet Volume 9.6 7.4-10.4 fL RDW Standard Deviation 70.6 36.4-46.3 fL RDW Coefficient of Variation 17.9 11.5-14.5 % Neutrophils % (Manual) 57.0 % Lymphocytes % (Manual) 21.1 % Monocytes % (Manual) 3.5 % Neutrophils # (Manual) 3.00 1.4-6.5 K/uL Total Absolute Neutrophils 3.00 1.4-6.5 K/uL Lymphocytes # (Manual) 1.11 1.2-3.4 K/uL Total Absolute Lymphocytes 2.08 1.2-3.4 K/uL Monocytes # (Manual) 0.18 0.11-0.59 K/uL Percent Large Granular Lymphocytes 18.4 % Absolute Large Granular Lymphocytes 0.97 K/uL Anisocytosis PRESENT Macrocytosis PRESENT Sodium Level 141 136-145 mmol/L Potassium Level 3.3 3.5-5.1 mmol/L Chloride Level 107 98-107 mmol/L Carbon Dioxide Level 29 21-32 mmol/L Anion Gap 5.0 3-11 mmol/L Blood Urea Nitrogen 11 7-18 mg/dl Creatinine 0.43 0.60-1.20 mg/dl Est Creatinine Clear Calc Drug Dose 86.6 ml/min Estimated GFR () 107.5 Estimated GFR (Non- 92.7 BUN/Creatinine Ratio 24.7 10-20 Random Glucose 80 70-99 mg/dl Calcium Level 8.6 8.5-10.1 mg/dl
--- NOTE | 2017-07-12 20:00 | NUR ---
A: Patient assessed. See EMR for full assessment. Drowsy but easily awakens. AAO x4. Very tired but feeling better. Ringing ricks for bedpan. IVF infusing @ 80mls/hr. Call ricks in place. Bed alarm on for safety.
[2017-07-13] VITALS (8 sets, daily range): BP systolic 111–173; BP diastolic 69–81; PULSE 59–102; TEMP 36.5–36.6; O2SAT 91–98
--- NOTE | 2017-07-13 | NUR ---
A: Assessment unchanged. Sinus Sanket on the monitor. Resting in bed at this time. Rings ricks for assist. IVF infusing. Will continue to monitor.
[2017-07-13] MEDS: CEFEPIME IV 1,000 MG in SYRINGE 0 ML IV SCH ×2 (00:50→11:47)
[2017-07-13] MEDS: AZITHROMYCIN 500 MG / D5W 250 ML IV SCH ×2 (02:18)
--- NOTE | 2017-07-13 04:00 | NUR ---
A: Assessment unchanged. NSR on the monitor. IVF infusing. Call ircks in reach. Rings for assist as needed. Will continue to monitor.
[2017-07-13] MEDS: SODIUM CHLORIDE 0.9% 1000ML 1,000 ML IV SCH ×2 (04:14→18:06)
[2017-07-13 07:33] LABS: CALCIUM 8.6 mg/dl (8.5-10.1); CREATININE 0.43 mg/dl (0.60-1.20); POTASSIUM 3.3 mmol/L (3.5-5.1)
--- NOTE | 2017-07-13 08:00 | NUR ---
A: Alert and oriented x4. VSS on room air at this time. OOB to BSC and chair with assist x1. NSR on monitor. Denies pain, chest pain or shortness of breath. Reports that she still feels very weak, but did well with transfers. States that she is feeling better today. Call ricks within reach. Encouraged to ring for assistance. Continue to monitor.
[2017-07-13 08:05] LABS: HEMOGLOBIN 8.6 g/dL (12.0-16.0); MEAN CELL VOLUME 110.6 fL (80-100); MEAN CORPUSCULAR HEMOGLOBIN 38.1 pg (25-34); MEAN CORPUSCULAR HGB CONC 34.4 g/dl (32-36); MEAN PLATELET VOLUME 9.6 fL (7.4-10.4); PLATELET COUNT 157 K/uL (130-400); RED CELL DISTRIBUTION WIDTH CV 17.9 % (11.5-14.5); RED CELL DISTRIBUTION WIDTH SD 70.6 fL (36.4-46.3); WHITE BLOOD COUNT 5.26 K/uL (4.8-10.8)
--- NOTE | 2017-07-13 12:00 | NUR ---
A: Assessment unchanged. Family at bedside. Pt. denies needs at this time. Call ricks within reach. Continue to monitor.
[2017-07-13] MEDS ORDERED: POTASSIUM CHLORIDE 20 MEQ TABCR PO ONE (13:15)
--- NOTE | 2017-07-13 15:31 | Progress Note ---
Internal Med Progress Note Date of Service: Jul 13, 2017. Provider Documentation: says feeling same weak and tired afebrile denies cough appetite not great no diarrhea or constipation no nausea no sob no chest pain family in room Exam: General-Alert sand awake. Not in distress ENT-Normal hearing Neck-no neck masses supple Lungs-cta b/l no wheezing no crackles Heart-S1 and S2 heard regular rate and rthym, no murmurs Abdomen-Soft bowel sounds present non tender no distension Extremities-no edema no erythema Neuro-alert and awake moves extremities ASSESSMENT & PLAN: 86 year old female with history of HTN, HLD, Ulcerative Colitis presenting with weakness. WEAKNESS, LIKELY SECONDARY TO: UTI history of pansensitive Klebsiella on iv cefepime urine cx growing gm negative bacilli 'will f/u final cx POSSIBLE PNEUMONIA Will ff up sputum cultures On Cefepime + Azithromycin mrsa swab negative continue same HYPOTHERMIA baseline temp 97F based on recent outpatient visit likely from underlying infection Leslie Lo improved HYPERTENSION BP stable on Atenolol Will monitor. AORTIC INSUFFICIENCY Will monitor volume status while on IV fluids cut back fluids to iv ns@50ml/hr ULCERATIVE COLITIS on Mesalamine DVT PROPHYLAXIS SCDs only patient has ulcerative colitis DNR as per H and P DISPOSITION LIVES AT HOME WITH SON PT/OT ff up with PCP Dr. Arriola Vital Signs: Date Time Temp Pulse Resp B/P (MAP) Pulse Ox O2 Delivery O2 Flow Rate FiO2 07/13/17 14:52 36.6 66 18 137/74 (95) 92 Room Air 07/13/17 12:00 Room Air 07/13/17 11:16 36.5 63 18 126/77 (93) 93 Room Air 07/13/17 08:17 59 119/71 (87) 95 Room Air 07/13/17 08:00 Room Air 07/13/17 07:15 36.5 102 18 117/71 (86) 91 Nasal Cannula 2.0 07/13/17 05:27 36.5 62 18 111/69 (83) 96 Nasal Cannula 2.0 07/13/17 04:00 Nasal Cannula 2.0 07/13/17 00:00 Nasal Cannula 2.0 07/12/17 23:56 36.5 68 18 119/69 (86) 97 Nasal Cannula 2.0 07/12/17 20:00 Nasal Cannula 2.0 07/12/17 19:46 36.5 68 16 121/72 (88) 97 Nasal Cannula 2.0 07/12/17 16:00 Nasal Cannula 2.0 Lab Results: Results Past 24 Hours Test 07/13/17 06:34 Range/Units White Blood Count 5.26 4.8-10.8 K/uL Red Blood Count 2.26 4.2-5.4 M/uL Hemoglobin 8.6 12.0-16.0 g/dL Hematocrit 25.0 37-47 % Mean Corpuscular Volume 110.6 80-100 fL Mean Corpuscular Hemoglobin 38.1 25-34 pg Mean Corpuscular Hemoglobin Concent 34.4 32-36 g/dl Platelet Count 157 130-400 K/uL Mean Platelet Volume 9.6 7.4-10.4 fL RDW Standard Deviation 70.6 36.4-46.3 fL RDW Coefficient of Variation 17.9 11.5-14.5 % Neutrophils % (Manual) 57.0 % Lymphocytes % (Manual) 21.1 % Monocytes % (Manual) 3.5 % Neutrophils # (Manual) 3.00 1.4-6.5 K/uL Total Absolute Neutrophils 3.00 1.4-6.5 K/uL Lymphocytes # (Manual) 1.11 1.2-3.4 K/uL Total Absolute Lymphocytes 2.08 1.2-3.4 K/uL Monocytes # (Manual) 0.18 0.11-0.59 K/uL Percent Large Granular Lymphocytes 18.4 % Absolute Large Granular Lymphocytes 0.97 K/uL Anisocytosis PRESENT Macrocytosis PRESENT Sodium Level 141 136-145 mmol/L Potassium Level 3.3 3.5-5.1 mmol/L Chloride Level 107 98-107 mmol/L Carbon Dioxide Level 29 21-32 mmol/L Anion Gap 5.0 3-11 mmol/L Blood Urea Nitrogen 11 7-18 mg/dl Creatinine 0.43 0.60-1.20 mg/dl Est Creatinine Clear Calc Drug Dose 86.6 ml/min Estimated GFR () 107.5 Estimated GFR (Non- 92.7 BUN/Creatinine Ratio 24.7 10-20 Random Glucose 80 70-99 mg/dl Calcium Level 8.6 8.5-10.1 mg/dl
--- NOTE | 2017-07-13 16:00 | NUR ---
A: Assessment unchanged. Family at bedside. Denies needs at this time. IV fluids continue to infuse as ordered. Continue IV antibiotics as ordered. Call ricks within reach. Continue to monitor.
[2017-07-13] MEDS ORDERED: LEVALBUTEROL 1.25MG/0.5ML NEB INH PRN (18:30)
[2017-07-13] MEDS ORDERED: IPRATROPIUM BROMIDE NEB SOLN 0.02% 2.5 ML VIAL INH PRN (18:30)
[2017-07-13] MEDS ORDERED: LEVALBUTEROL/IPRATROPIUM NEB INH PRN (18:30)
[2017-07-13] MEDS ORDERED: NURSING VERBAL MED ORDER ONE (19:00)
[2017-07-13] MEDS ORDERED: FUROSEMIDE INJ 20 MG in SYRINGE 0 ML IV SCH (19:15)
[2017-07-13] MEDS ORDERED: LORAZEPAM 0.5 MG TAB PO SCH (19:15)
--- NOTE | 2017-07-13 20:00 | NUR ---
A: Patient assessed. See EMR for full assessment. AAO x4. NSR on the monitor. Continues to have mild tremors in BL arms. Medicated with po ativan and IV lasix per MD order. On 2L NC. Denies SOB. Call ricks in reach. Rings for assist as needed. Will continue to monitor.
[2017-07-13] MEDS: MESALAMINE DR TABLET 800 MG TABDR PO SCH (20:59)
[2017-07-13] MEDS: HEPARIN SOD 5000 UNIT/0.5 ML CARP SQ SCH (21:05)
--- NOTE | 2017-07-14 | NUR ---
A: Patient resting at this time. Assessment unchanged. Mild tremors noted to BL arms. Voiding frequent large amounts. NSR on the monitor. xcall ricks in reach.
[2017-07-14] MEDS: CEFEPIME IV 1,000 MG in SYRINGE 0 ML IV SCH (00:06)
[2017-07-14] MEDS: AZITHROMYCIN 500 MG / D5W 250 ML IV SCH ×2 (02:19)
--- NOTE | 2017-07-14 04:00 | NUR ---
A/ID: Patient admitted with Weakness. AAO x4. Remains weak but was able to sit in a chair for a short time. Mild tremor noted to BL arms. Receiving IV ABX. IVF discontinued. Voiding large amount of urine. NSR on the monitor. Discharge plan uncertain at this time.
[2017-07-14 05:04] VITALS: BP 126/75; PULSE 77; TEMP 36.5; O2SAT 95
[2017-07-14 05:55] LABS: BASO % 0.2 %; BASO ABS # 0.01 K/uL (0-0.2); EOS ABS # 0.05 K/uL (0-0.5); HEMATOCRIT 29.4 % (37-47); HEMOGLOBIN 9.8 g/dL (12.0-16.0); IG# 0.02 K/uL (0.00-0.02); LYMPH ABS # 1.33 K/uL (1.2-3.4); MEAN CELL VOLUME 108.1 fL (80-100); MEAN CORPUSCULAR HGB CONC 33.3 g/dl (32-36); MEAN PLATELET VOLUME 9.1 fL (7.4-10.4); MONO % 7.2 %; MONO ABS # 0.37 K/uL (0.11-0.59); NEUT % 65.2 %; NEUT ABS # 3.34 K/uL (1.4-6.5); PLATELET COUNT 149 K/uL (130-400); RED CELL DISTRIBUTION WIDTH CV 17.1 % (11.5-14.5); RED CELL DISTRIBUTION WIDTH SD 66.4 fL (36.4-46.3); WHITE BLOOD COUNT 5.12 K/uL (4.8-10.8)
[2017-07-14 06:45] LABS: CALCIUM 8.8 mg/dl (8.5-10.1); CREATININE 0.45 mg/dl (0.60-1.20); POTASSIUM 3.1 mmol/L (3.5-5.1)
[2017-07-14 07:41] VITALS: BP 125/72; PULSE 78; TEMP 36.5; O2SAT 96
[2017-07-14] MEDS ORDERED: POTASSIUM CHLORIDE 20 MEQ TABCR PO ONE (07:45)
[2017-07-14] MEDS: MESALAMINE DR TABLET 800 MG TABDR PO SCH ×2 (07:56→20:57)
[2017-07-14] MEDS: HEPARIN SOD 5000 UNIT/0.5 ML CARP SQ SCH ×2 (07:58→21:00)
--- NOTE | 2017-07-14 08:00 | NUR ---
A: PT IS A&OX4. VSS ON 2L NASAL CANNULA. DENIES CHEST PAIN AND SOB. PT IS NSR ON MONITOR. SALINE LOCKED. TOLERATING DIET. PT IS RESTING IN BED AT THIS TIME. NO COMPLAINTS. Q1H ROUNDING. CALL QUINTANILLA WITHIN REACH. WILL CONTINUE TO MONITOR.
[2017-07-14] MEDS: LEVOFLOXACIN / D5W 750 MG in PREMIXED IN D5W 150 ML IV SCH (09:18)
[2017-07-14 11:16] VITALS: BP 120/74; PULSE 69; TEMP 36.4; O2SAT 96
--- NOTE | 2017-07-14 11:32 | DIAGNOSTIC IMAGING REPORT ---
SINGLE VIEW CHEST CLINICAL HISTORY: Chest congestion. FINDINGS: An AP, portable, upright chest radiograph is compared to study dated 07/11/2017. The examination is degraded by portable technique and patient rotation. The heart is enlarged and there is atherosclerotic calcification of the thoracic aorta. The pulmonary vasculature is noncongested. There is chronic elevation of right hemidiaphragm with bibasilar atelectasis. Chronic obstructive thickening is similar to previous. No airspace consolidation or large pleural effusion is identified. No pneumothorax is seen. The skeletal structures are osteopenic. The bony thorax is grossly intact. Degenerative change and scoliosis are noted in the thoracic spine. IMPRESSION: 1. Cardiomegaly and chronic parenchymal changes as above. No acute cardiopulmonary abnormality is seen. 2. Basilar airspace opacities have resolved from 07/11/2017 and likely represented atelectasis. Electronically signed by: Bryant Olvera M.D. 07/14/2017 11:31 AM Dictated Date/Time: 07/14/2017 11:30 AM
--- NOTE | 2017-07-14 12:00 | NUR ---
A: ASSESSMENT UNCHANGED. Q1H ROUNDING. CALL QUINTANILLA WITHIN REACH. WILL CONTINUE TO MONITOR.
[2017-07-14 15:33] VITALS: BP 132/81; PULSE 63; TEMP 36.5; O2SAT 95
--- NOTE | 2017-07-14 16:00 | NUR ---
A: ASSESSMENT UNCHANGED. Q1H ROUNDING. CALL QUINTANILLA WITHIN REACH. WILL CONTINUE TO MONITOR.
--- NOTE | 2017-07-14 17:08 | Progress Note ---
Internal Med Progress Note Date of Service: Jul 14, 2017. Provider Documentation: feeling better today no sob today cough improving eating ok no nausea or abdominal pain Exam: General-Alert sand awake. Not in distress ENT-Normal hearing Neck-no neck masses supple Lungs-cta b/l no wheezing no crackles Heart-S1 and S2 heard regular rate and rthym, no murmurs Abdomen-Soft bowel sounds present non tender no distension Extremities-no edema no erythema Neuro-alert and awake moves extremities ASSESSMENT & PLAN: 86 year old female with history of HTN, HLD, Ulcerative Colitis presenting with weakness. WEAKNESS, LIKELY SECONDARY TO: UTI cx growing pansensitive Klebsiella abx changed to Levaquin POSSIBLE PNEUMONIA Will ff up sputum cultures Levaquin mrsa swab negative continue same HYPOTHERMIA baseline temp 97F based on recent outpatient visit likely from underlying infection Leslie Lo improved HYPERTENSION BP stable on Atenolol Will monitor. AORTIC INSUFFICIENCY Will monitor volume status while on IV fluids stopped fluids and given a dose of Lasix last night as patient was getting sob ULCERATIVE COLITIS on Mesalamine DVT PROPHYLAXIS SCDs only patient has ulcerative colitis DNR as per H and P DISPOSITION LIVES AT HOME WITH SON PT/OT possible d/c in 1-2 days ff up with PCP Dr. Arriola Vital Signs: Date Time Temp Pulse Resp B/P (MAP) Pulse Ox O2 Delivery O2 Flow Rate FiO2 07/14/17 15:33 36.5 63 18 132/81 (98) 95 Nasal Cannula 2.0 07/14/17 12:00 Room Air 07/14/17 11:16 36.4 69 18 120/74 (89) 96 2.0 07/14/17 08:00 Room Air 07/14/17 07:41 36.5 78 18 125/72 (89) 96 2.0 07/14/17 05:04 36.5 77 20 126/75 (92) 95 Nasal Cannula 2.0 07/14/17 04:00 Nasal Cannula 2.0 07/14/17 00:00 Nasal Cannula 2.0 07/13/17 23:24 36.5 72 22 138/79 (98) 98 Nasal Cannula 2.0 07/13/17 20:00 Nasal Cannula 2.0 07/13/17 18:53 36.5 90 18 148/81 (103) 94 2.0 07/13/17 18:16 87 18 173/78 (109) 94 Room Air Lab Results: Results Past 24 Hours Test 07/14/17 05:29 Range/Units White Blood Count 5.12 4.8-10.8 K/uL Red Blood Count 2.72 4.2-5.4 M/uL Hemoglobin 9.8 12.0-16.0 g/dL Hematocrit 29.4 37-47 % Mean Corpuscular Volume 108.1 80-100 fL Mean Corpuscular Hemoglobin 36.0 25-34 pg Mean Corpuscular Hemoglobin Concent 33.3 32-36 g/dl Platelet Count 149 130-400 K/uL Mean Platelet Volume 9.1 7.4-10.4 fL Neutrophils (%) (Auto) 65.2 % Lymphocytes (%) (Auto) 26.0 % Monocytes (%) (Auto) 7.2 % Eosinophils (%) (Auto) 1.0 % Basophils (%) (Auto) 0.2 % Neutrophils # (Auto) 3.34 1.4-6.5 K/uL Lymphocytes # (Auto) 1.33 1.2-3.4 K/uL Monocytes # (Auto) 0.37 0.11-0.59 K/uL Eosinophils # (Auto) 0.05 0-0.5 K/uL Basophils # (Auto) 0.01 0-0.2 K/uL RDW Standard Deviation 66.4 36.4-46.3 fL RDW Coefficient of Variation 17.1 11.5-14.5 % Immature Granulocyte % (Auto) 0.4 % Immature Granulocyte # (Auto) 0.02 0.00-0.02 K/uL Sodium Level 139 136-145 mmol/L Potassium Level 3.1 3.5-5.1 mmol/L Chloride Level 104 98-107 mmol/L Carbon Dioxide Level 31 21-32 mmol/L Anion Gap 4.0 3-11 mmol/L Blood Urea Nitrogen 7 7-18 mg/dl Creatinine 0.45 0.60-1.20 mg/dl Est Creatinine Clear Calc Drug Dose 82.2 ml/min Estimated GFR () 105.9 Estimated GFR (Non- 91.4 BUN/Creatinine Ratio 15.4 10-20 Random Glucose 89 70-99 mg/dl Calcium Level 8.8 8.5-10.1 mg/dl Magnesium Level 1.9 1.8-2.4 mg/dl Iron Level 41 35-150 mcg/dl Total Iron Binding Capacity 282 250-450 mcg/dl Transferrin 226 200-360 mg/dl Transferrin % Saturation 13 15-50 % Ferritin 218.6 8.0-388.0 ng/ml Vitamin B12 Level 516 211-911 pg/mL Folate 4.68 >5.38 ng/mL Thyroid Stimulating Hormone (TSH) 4.240 0.300-4.500 uIu/ml Free Thyroxine 1.04 0.80-1.60 ng/dl
[2017-07-14 20:02] VITALS: O2SAT 95
--- NOTE | 2017-07-14 20:05 | NUR ---
A: Pt is a 86y/o female admitted with weakness. +UTI. NSR on monitor. A/O x4. Glasses. Lungs are clear diminihsed on 2L NC. Pt does not wear O2 at home. Sent sputum culture - results pending. +Cough with thin clear sputum. Tolerating clear liquid diet well. Denies N/V. Pt reports diarrhea today. Stress incont. OOB x1 assist to bedside commode. L FA SL. Encouraged to ring for assist.
[2017-07-14 23:05] VITALS: BP 134/83; PULSE 72; TEMP 36.6; O2SAT 95
--- NOTE | 2017-07-15 | NUR ---
A/ID: Pt is an 86yo female admitted for weakness. + UTI. NSR on monitor. A/o x4. Lungs diminished with crackles in the bases. On 2L NC. No O2 requirement at baseline. Sputum culture results pending. Tolerating clear liquid diet. Denies pain, n/v. OOB with 1 assist to BSC. L FA SL. Hourly rounding. Encouraged to ring for assistance.
[2017-07-15 00:15] VITALS: O2SAT 95
[2017-07-15 04:00] VITALS: BP 135/80; PULSE 79; TEMP 36.4; O2SAT 96
[2017-07-15 04:20] VITALS: O2SAT 95
--- NOTE | 2017-07-15 04:20 | NUR ---
A: Assessment unchanged. Pt sleeping. Will continue to monitor.
[2017-07-15 07:20] VITALS: BP 128/70; PULSE 72; TEMP 36.7; O2SAT 95
[2017-07-15 07:20] LABS: BASO % 0.2 %; BASO ABS # 0.01 K/uL (0-0.2); EOS ABS # 0.04 K/uL (0-0.5); HEMATOCRIT 27.6 % (37-47); HEMOGLOBIN 9.3 g/dL (12.0-16.0); IG# 0.01 K/uL (0.00-0.02); LYMPH % 38.5 %; LYMPH ABS # 1.58 K/uL (1.2-3.4); MEAN CELL VOLUME 108.7 fL (80-100); MEAN CORPUSCULAR HEMOGLOBIN 36.6 pg (25-34); MEAN CORPUSCULAR HGB CONC 33.7 g/dl (32-36); MEAN PLATELET VOLUME 9.3 fL (7.4-10.4); MONO % 8.3 %; MONO ABS # 0.34 K/uL (0.11-0.59); NEUT % 51.8 %; NEUT ABS # 2.12 K/uL (1.4-6.5); PLATELET COUNT 149 K/uL (130-400); RED CELL DISTRIBUTION WIDTH CV 16.8 % (11.5-14.5); RED CELL DISTRIBUTION WIDTH SD 65.8 fL (36.4-46.3)
--- NOTE | 2017-07-15 07:38 | NUR ---
Pt screened for Clear liquids > 3 days. Process Plan entered. When appropriate, advance diet from clear liquids. Will continue to monitor Pt's ability to have diet advanced.
[2017-07-15] MEDS: LEVOFLOXACIN / D5W 750 MG in PREMIXED IN D5W 150 ML IV SCH (07:53)
[2017-07-15] MEDS: MESALAMINE DR TABLET 800 MG TABDR PO SCH (07:53)
[2017-07-15] MEDS: HEPARIN SOD 5000 UNIT/0.5 ML CARP SQ SCH (07:58)
--- NOTE | 2017-07-15 08:00 | NUR ---
A: Alert and oriented x4. VSS on room air, 2L NC removed at this time. Denies pain, chest pain or shortness of breath. Resting comfortably in bed. NSR with IVCD on monitor. Plans to return home on discharge. Call ricks within reach. Continue to monitor.
[2017-07-15 08:02] LABS: CREATININE 0.39 mg/dl (0.60-1.20)
[2017-07-15 08:03] LABS: POTASSIUM 3.6 mmol/L (3.5-5.1)
[2017-07-15 11:48] VITALS: BP 107/66; PULSE 67; TEMP 36.6; O2SAT 94
--- NOTE | 2017-07-15 12:00 | NUR ---
A: Assessment unchanged. Call ricks within reach. Denies needs at this time. Hopeful for discharge later today. Call ricks within reach. Son at bedside at this time. Call ricks within reach. Continue to monitor.
--- NOTE | 2017-07-15 13:17 | Clinical Documentation Query ---
CLINICAL DOCUMENTATION QUERY Dr. FORTE, In your clinical opinion is this patient being managed for: ( ) possible Sepsis, POA ( ) Not Agree ( ) Other explanation of clinical findings (Please Explain) ( x) Unable to determine (Please Define) ( ) Need to Discuss The medical record reflects the following clinical findings, treatment, and risk factors. Clinical Indicators: 86 yo female presenting with UTI and possible pneumonia, with extreme weakness and fatigue. Hypothermic with temp of 35.4 R, WBC initially WNL but downtrended to 4.10. Treatment: blood and urine cx, IV fluids, IV cefepime, IV rocephin, IV levaquin, O2 support Risk Factors:ulcerative colitis on chronic NSAID therapy, age, UTI, possible pneumonia Please clarify and document your clinical opinion in the progress notes and discharge summary. Terms such as "probable", "suspected", "likely", "questionable", "possible", or "still to be ruled out" are acceptable. IF IN AGREEMENT, YOU MUST DOCUMENT ABOVE DIAGNOSTIC STATEMENT IN DAILY PROGRESS NOTES AND DISCHARGE SUMMARY. This document is not part of the patient's record. Thank You, Neena Parker, RN [phone]
[2017-07-15] MEDS ORDERED: LEVO750T23 PO (13:53)
[2017-07-15] MEDS ORDERED: LCTX PO (13:53)
--- NOTE | 2017-07-15 13:55 | Discharge Instructions ---
Discharge Instructions Date of Service Jul 15, 2017. Admission Reason for Admission: Weakness Discharge Discharge Diagnosis / Problem: weakness, uti, pneumonia? Discharge Goals Goal(s): Decrease discomfort, Improve function Activity Recommendations Activity Limitations: resume your previous activity . Instructions / Follow-Up Instructions / Follow-Up FOLLOWUP WITH FAMILY DOCTOR ON Jul AT 1:45PM Current Hospital Diet Patient's current hospital diet: Clear Liquid Diet, AHA Diet (Heart Healthy) Discharge Diet Recommended Diet: AHA Diet (Heart Healthy) Pending Studies Studies pending at discharge: no Medical Emergencies . Who to Call and When: Medical Emergencies: If at any time you feel your situation is an emergency, please call 911 immediately. . Non-Emergent Contact Non-Emergency issues call your: Primary Care Provider . . "Provider Documentation" section prepared by Aniket Huff. . VTE Core Measure Inpt VTE Proph given/why not?: SCD's
[2017-07-15 14:00] VITALS: BP 107/66; PULSE 67; TEMP 36.6; O2SAT 94
--- NOTE | 2017-07-15 14:37 | NUR ---
A: MD ordered discharge. Discharge teaching completed, all questions answered. IV site discontinued, catheter intact. All belongings including prescriptions, discharge instructions and glasses returned to pt. Son at bedside to transport pt. home. Volunteer notified to transport pt. to main entrance.
--- NOTE | 2017-07-15 17:27 | Progress Note ---
Internal Med Progress Note Date of Service: Jul 15, 2017. Provider Documentation: sitting on the chair comfortably no sob no cough ambulated ok wants to go home Exam: General-Alert sand awake. Not in distress ENT-Normal hearing Neck-no neck masses supple Lungs-cta b/l no wheezing no crackles Heart-S1 and S2 heard regular rate and rthym, no murmurs Abdomen-Soft bowel sounds present non tender no distension Extremities-no edema no erythema Neuro-alert and awake moves extremities ASSESSMENT & PLAN: 86 year old female with history of HTN, HLD, Ulcerative Colitis presenting with weakness. WEAKNESS, LIKELY SECONDARY TO: UTI cx growing pansensitive Klebsiella abx changed to Levaquin POSSIBLE PNEUMONIA Will ff up sputum cultures Levaquin mrsa swab negative continue same d/k[place] on five more days of Levaquin HYPOTHERMIA baseline temp 97F based on recent outpatient visit likely from underlying infection Leslie Lo improved HYPERTENSION BP stable on Atenolol Will monitor. AORTIC INSUFFICIENCY Will monitor volume status while on IV fluids stopped fluids and given a dose of Lasix last night as patient was getting sob stable f/u with pcp ULCERATIVE COLITIS on Mesalamine discharged home Vital Signs: Date Time Temp Pulse Resp B/P (MAP) Pulse Ox O2 Delivery O2 Flow Rate FiO2 07/15/17 14:00 36.6 67 18 94 Room Air 07/15/17 12:00 Room Air 07/15/17 11:48 36.6 67 18 107/66 (80) 94 Room Air 07/15/17 08:00 Room Air 07/15/17 07:20 36.7 72 18 128/70 (89) 95 Nasal Cannula 2.0 07/15/17 04:20 95 Nasal Cannula 2.0 07/15/17 04:00 36.4 79 20 135/80 (98) 96 2.0 07/15/17 00:15 95 Nasal Cannula 2.0 07/14/17 23:05 36.6 72 18 134/83 (100) 95 Nasal Cannula 2.0 07/14/17 20:02 95 Nasal Cannula 2.0 Lab Results: Results Past 24 Hours Test 07/15/17 06:37 Range/Units White Blood Count 4.10 4.8-10.8 K/uL Red Blood Count 2.54 4.2-5.4 M/uL Hemoglobin 9.3 12.0-16.0 g/dL Hematocrit 27.6 37-47 % Mean Corpuscular Volume 108.7 80-100 fL Mean Corpuscular Hemoglobin 36.6 25-34 pg Mean Corpuscular Hemoglobin Concent 33.7 32-36 g/dl Platelet Count 149 130-400 K/uL Mean Platelet Volume 9.3 7.4-10.4 fL Neutrophils (%) (Auto) 51.8 % Lymphocytes (%) (Auto) 38.5 % Monocytes (%) (Auto) 8.3 % Eosinophils (%) (Auto) 1.0 % Basophils (%) (Auto) 0.2 % Neutrophils # (Auto) 2.12 1.4-6.5 K/uL Lymphocytes # (Auto) 1.58 1.2-3.4 K/uL Monocytes # (Auto) 0.34 0.11-0.59 K/uL Eosinophils # (Auto) 0.04 0-0.5 K/uL Basophils # (Auto) 0.01 0-0.2 K/uL RDW Standard Deviation 65.8 36.4-46.3 fL RDW Coefficient of Variation 16.8 11.5-14.5 % Immature Granulocyte % (Auto) 0.2 % Immature Granulocyte # (Auto) 0.01 0.00-0.02 K/uL Sodium Level 139 136-145 mmol/L Potassium Level 3.6 3.5-5.1 mmol/L Chloride Level 104 98-107 mmol/L Carbon Dioxide Level 31 21-32 mmol/L Anion Gap 3.0 3-11 mmol/L Blood Urea Nitrogen 5 7-18 mg/dl Creatinine 0.39 0.60-1.20 mg/dl Est Creatinine Clear Calc Drug Dose 95.1 ml/min Estimated GFR () 111.0 Estimated GFR (Non- 95.8 BUN/Creatinine Ratio 12.3 10-20 Random Glucose 88 70-99 mg/dl Calcium Level 9.0 8.5-10.1 mg/dl Microbiology Results 07/14/17 Gram Stain - Final, Resulted 07/14/17 Sputum Culture - Preliminary, Resulted MODERATE NORMAL GILLIAN Present, Final ...
--- NOTE | 2017-07-29 11:24 | Discharge Summary ---
Discharge Summary Date of Service Jul 29, 2017. Discharge Summary Admission Date: Jul 11, 2017 at 23:56 Discharge Date: Jul 15, 2017 Discharge Disposition: Home Principal Diagnosis: UTI PNEUMONIA HYPOTHERMIA Secondary Diagnoses/Problems: (1) Aortic insufficiency Status: Chronic (2) History of ulcerative colitis Status: Chronic (3) Hypertension Status: Chronic (4) Osteoporosis Status: Chronic Procedures: CT HEAD: No acute intracranial abnormality. CXR: Mild left and to a lesser extent right basilar infiltrate Medication Reconciliation Continued Medications: Acetaminophen (Tylenol) 500 Mg Tab 1-2 TAB PO Q8 PRN for Mild Pain, TAB Atenolol (Tenormin) 25 Mg Tab 25 MG PO DAILY, TAB Calcium Carbonate-Vitamin D (Calcium + D3 600-200 mg-Unit) 1 Tab Tab 1 TAB PO BID Cholecalciferol (Vitamin D3) 2,000 Unit Cap 1 CAP PO DAILY for 30 Days, #30 CAP 3 Refills Fish Oil ([place]-3) 1 Ea Cap 1 CAP PO DAILY, CAP Ibandronate Sodium (Boniva) 150 Mg Tab 150 MG PO MONTHLY, TAB Lovastatin (Mevacor) 40 Mg Tab 40 MG PO DAILY Mesalamine (Asacol Hd) 800 Mg Tab 1600 MG PO BID TWO 800 MG TABLETS TWICE DAILY Oxycodone HCl (Oxycodone HCl) 5 Mg Tab 5 MG PO Q6H PRN for severe for 5 Days, #20 TAB Tramadol HCl (Tramadol HCl) 50 Mg Tab 25 MG PO Q6 PRN for Moderate Pain for 10 Days, #20 TAB Admission Information HPI (per Admitting provider): 86 year old female with history of HTN, HLD, Ulcerative Colitis presenting with weakness. Follows with Dr. Arriola for PCP. Patient reports that she was feeling fine until this evening when she started to feel weak and lightheaded. At 8pm, she was in the bathroom but felt very weak to the point that she had to crawl her way back to the bed. She had 1 episode of non bloody vomiting. She reports productive cough for 1-2 weeks now, no dyspnea. Denies abdominal pain, dysuria, diarrhea. Denies focal neuro deficits, confusion. She was then brought to the ER. At the ER, patient's BP 151/66, Temp ~35. UA showed signs of UTI and CXR showed possible bibasilar pneumonia. Cefepime was started. On exam, patient seen in a montserrat hugger, alert, oriented, not in distress. Denies any other active symptoms. Physical Exam (per Admitting): General Appearance: WD/WN, no apparent distress Head: normocephalic, atraumatic Eyes: normal inspection, PERRL, EOMI, sclerae normal ENT: normal ENT inspection, hearing grossly normal, pharynx normal Neck: supple, no adenopathy, thyroid normal, no JVD, trachea midline Respiratory/Chest: chest non-tender, lungs clear, normal breath sounds, no respiratory distress, no accessory muscle use Cardiovascular: regular rate, rhythm, no edema, no gallop, no murmur, normal peripheral pulses Abdomen/GI: normal bowel sounds, non tender, soft Back: normal inspection, no CVA tenderness Extremities/Musculoskelatal: normal inspection, no calf tenderness, normal capillary refill, no pedal edema, non-tender Neurologic/Psych: laminator hand II-XII nml as tested, no motor/sensory deficits, alert , normal mood/affect, oriented x 3 Skin: normal color, warm/dry, no rash Lymphatic: no adenopathy Hospital Course 86 year old female with history of HTN, HLD, Ulcerative Colitis presenting with weakness. WEAKNESS, LIKELY SECONDARY TO: UTI cx growing pansensitive Klebsiella abx changed to Levaquin POSSIBLE PNEUMONIA Will ff up sputum cultures Levaquin mrsa swab negative continue same d/[place] on five more days of Levaquin HYPOTHERMIA baseline temp 97F based on recent outpatient visit likely from underlying infection Montserrat Hugger improved HYPERTENSION BP stable on Atenolol Will monitor. AORTIC INSUFFICIENCY Will monitor volume status while on IV fluids stopped fluids and given a dose of Lasix last night as patient was getting sob stable f/u with pcp ULCERATIVE COLITIS on Mesalamine discharged home Total time spent on discharge = 35MINUTES This includes examination of the patient, discharge planning, medication reconciliation, and communication with other providers. Discharge Instructions Discharge Instructions Date of Service Jul 15, 2017. Admission Reason for Admission: Weakness Discharge Discharge Diagnosis / Problem: weakness, uti, pneumonia? Discharge Goals Goal(s): Decrease discomfort, Improve function Activity Recommendations Activity Limitations: resume your previous activity . Instructions / Follow-Up Instructions / Follow-Up FOLLOWUP WITH FAMILY DOCTOR ON Jul AT 1:45PM Current Hospital Diet Patient's current hospital diet: Clear Liquid Diet, AHA Diet (Heart Healthy) Discharge Diet Recommended Diet: AHA Diet (Heart Healthy) Pending Studies Studies pending at discharge: no Medical Emergencies . Who to Call and When: Medical Emergencies: If at any time you feel your situation is an emergency, please call 911 immediately. . Non-Emergent Contact Non-Emergency issues call your: Primary Care Provider . . "Provider Documentation" section prepared by Aniket Huff. . VTE Core Measure Inpt VTE Proph given/why not?: SCD's
[2017-12-12] MEDS ORDERED: BENZ100C84 PO (15:18)
[2017-12-15] MEDS ORDERED: AZIT-57 PO (19:38)
[2017-12-15] MEDS ORDERED: AMOX1TAB43 PO (19:38)
[2017-12-28] MEDS ORDERED: LEVO25TA5 PO (20:47)
[2017-12-28] MEDS ORDERED: LCTX PO (20:47)
== END 2017-07-15 14:40 | disposition home or self-care (01) | DRG 689 ==
LOC: EDBD 21:33 → C.EDA 21:34 → C.MED 23:56 → EDBEDREQ 23:59 → CANRESERV 07-12 00:10 → ENRESERV 07-12 00:10 → EDBEDREQSVC 07-12 00:49 → ENRESERV 07-12 00:51
PROVIDERS: ADMIT Internal Medicine; ATTEND Internal Medicine
DX: N39.0 Urinary tract infection, site not specified (principal); J18.9 Pneumonia, unspecified organism; K51.90 Ulcerative colitis, unspecified, without complications; B96.1 Klebsiella pneumoniae [K. pneumoniae] as the cause of diseases classified elsewhere; R68.0 Hypothermia, not associated with low environmental temperature; I10 Essential (primary) hypertension; I35.1 Nonrheumatic aortic (valve) insufficiency; E78.5 Hyperlipidemia, unspecified; Z66 Do not resuscitate; Z87.891 Personal history of nicotine dependence; Z79.83 Long term (current) use of bisphosphonates; Z79.899 Other long term (current) drug therapy

== ENCOUNTER → 2017-11-25 | Outpatient (CLI) | payer OTHER ==
--- NOTE | 2017-11-26 15:24 | MAMMOGRAPHY REPORT ---
BILATERAL DIGITAL SCREENING MAMMOGRAM TOMOSYNTHESIS WITH CAD: 11/25/2017 CLINICAL HISTORY: Routine screening. Patient has no complaints. TECHNIQUE: Breast tomosynthesis in addition to standard 2D mammography was performed. Current study was also evaluated with a Computer Aided Detection (CAD) system. COMPARISON: Comparison is made to exams dated: 10/21/2016 mammogram, 10/09/2015 mammogram, 10/06/2014 m ammogram, 12/26/2011 mammogram, 12/19/2010 mammogram, and 12/18/2009 mammogram - [facility]. BREAST COMPOSITION: The tissue of both breasts is almost entirely fatty. FINDINGS: There are mild benign vascular calcifications in both breasts. No suspicious mass, archi tectural distortion or cluster of microcalcifications is seen. IMPRESSION: ACR BI-RADS CATEGORY 2: BENIGN There is no mammographic evidence of malignancy. A 1 year screening mammogram is recommended. The pa tient will receive written notification of the results. Approximately 10% of breast cancers are not detected with mammography. A negative mammographic report should not delay biopsy if a clinically suggestive mass is present. Hanna So M.D. ay/:11/25/2017 15:44:02 Syrup Maker: Yessica MCDONALD(Erick)(M), [facility] letter sent: Normal 1/2 BI-RADS Code: ACR BI-RADS Category 2: Benign
== END | disposition home or self-care (01) ==
LOC: C.MAMM 09:27
PROVIDERS: ATTEND Family Medicine
DX: Z12.31 Encounter for screening mammogram for malignant neoplasm of breast (principal)